=== PATIENT | female | born 1940 | race American Indian/Alaskan Native ===

== ENCOUNTER 2016-12-07 18:38 | Emergency (ER) | payer MEDICARE, OTHER ==
[2016-12-07 19:06] VITALS: BP 173/64
--- NOTE | 2016-12-07 19:20 | EDM.PDOC ---
ED HISTORY OF PRESENT ILLNESS - General Chief Complaint: Respiratory Problem Stated Complaint: SICK Time Seen by Provider: 12/07/16 19:00 Source of Information: Reports: Patient History Limitations: Reports: No limitations - History of Present Illness INITIAL COMMENTS - FREE TEXT/NARRATIVE: c/o feeling weak, sore throat , congestion, occasional cough, diarrhea since Tuesday up to 10 times per day. Treated for UTI on Macrobid for 4 days. Still having burning and frequency. - Related Data Allergies/ADRs: Allergies Allergy/AdvReac Type Severity Reaction Status Date / Time acetaminophen Allergy Rash Verified 06/12/16 11:27 [From Darvocet-N 100] ciprofloxacin [From Cipro] Allergy Rash Verified 06/12/16 11:27 ciprofloxacin HCl Allergy Rash Verified 06/12/16 11:27 [From Cipro] latex Allergy Rash Verified 06/12/16 11:27 metformin HCl Allergy Other Verified 06/12/16 11:27 [From Glucophage] propoxyphene napsylate Allergy Rash Verified 06/12/16 11:27 [From Darvocet-N 100] sulfamethoxazole Allergy Rash Verified 06/12/16 11:27 [From Bactrim] trimethoprim [From Bactrim] Allergy Rash Verified 06/12/16 11:27 promethazine HCl AdvReac Weakness Verified 06/12/16 11:27 [From Phenergan] Home Meds: Home Meds Aspirin 1 tab PO DAILY 08/31/13 [History] Clopidogrel [Plavix] 1 tab PO DAILY 08/31/13 [History] glyBURIDE [Diabeta] 5 mg PO ACBREAKFAST 08/31/13 [History] Vitamin E 1 cap PO DAILY 08/13/14 [History] Ramipril [Altace] 1 cap PO BID 10/02/15 [History] Hydrochlorothiazide 1 tab PO DAILY 10/14/15 [History] Ferrous Sulfate 1 tab PO BID 10/20/15 [History] Insuln Asp Prot/Insulin Aspart [NovoLOG Mix 70-30] 52 units SQ BEDTIME 10/20/15 [History] Insuln Asp Prot/Insulin Aspart [NovoLOG Mix 70-30] 60 units SQ ACBREAKFAST 10/20 [History] Ranitidine [Zantac] 1 tab PO ASDIRECTED PRN 10/20/15 [History] Travoprost (Benzalkonium) [Travoprost 0.004% Eye Drop] 1 drop EYEBOTH BEDTIME [History] Acetaminophen [Tylenol] 650 mg PO BID PRN 01/12/16 [History] Atenolol 2 tab PO BID 01/12/16 [History] Nitroglycerin [Nitrostat] 1 tab SL ASDIRECTED PRN 01/12/16 [History] Past Medical History HEENT History: Reports: Cataract, Glaucoma, Impaired vision Other HEENT History: WEARS CORRECTIVE LENSES; FULL SET OF DENTURES; DERMATOCHALASIS; DETACHMENT PVD; DIABETIC RETINOPATHY-PROLIFERATIVE Cardiovascular History: Reports: CAD, High cholesterol, Hypertension, Stents Respiratory History: Reports: None Gastrointestinal History: Reports: Chronic constipation, GERD, Hiatal hernia, Other (see below) Other Gastrointestinal History: BLACK STOOLS Genitourinary History: Reports: UTI, recurrent, Other (see below) Other Genitourinary History: 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 - Infectious Disease History Infectious Disease History: Reports: Chicken pox, Measles, Mumps, Shingles - Past Surgical History HEENT Surgical History: Reports: Cataract surgery Cardiovascular Surgical History: Reports: Coronary artery stent, Other (see below) Other Cardiovascular Surgeries/Procedures: ANGIOPLASTY Respiratory Surgical History: Reports: None GI Surgical History: Reports: Cholecystectomy, Colonoscopy, EGD Female Surgical History: Reports: Breast biopsy, Tubal ligation Endocrine Surgical History: Reports: None Neurological Surgical History: Reports: None Musculoskeletal Surgical History: Reports: Carpal tunnel Oncologic Surgical History: Reports: Biopsy of breast Social & Family History - Family History Family Medical History: Noncontributory - Tobacco Use Smoking Status *Q: Never Smoker Years of Tobacco use: 18 Used Tobacco, but Quit: Yes Month Tobacco Last Used: 0 Second Hand Smoke Exposure: No - Caffeine Use Caffeine Use: Reports: Coffee - Alcohol Use Days Per Week of Alcohol Use: 0 - Recreational Drug Use Recreational Drug Use: No - Living Situation & Occupation Living situation: Reports: , with family Occupation: retired ED ROS GENERAL - Review of Systems Review Of Systems: See Below Constitutional: Reports: chills, malaise, weakness, decreased appetite HEENT: Reports: Ear pain (left), Sinus problem, Throat pain Respiratory: Reports: No Symptoms, Cough (post nasal) Cardiovascular: Reports: No symptoms GI/Abdominal: Reports: Abdominal pain (epigastric, suprapubic), Diarrhea (up to 10 times per day, some better today), Decreased appetite : Reports: dysuria, frequency Musculoskeletal: Reports: joint pain (knee chronic) Skin: Reports: no symptoms Neurological: Reports: No Symptoms Psychiatric: Reports: No symptoms ED EXAM, GENERAL - Physical Exam Exam: See Below Exam Limited By: No limitations General Appearance: alert, mild distress Eye Exam: bilateral eye: EOMI Ears: normal external exam. No: normal TMs (fluid on left) Ear Exam: left ear: TM bulging Nose: normal inspection Throat/Mouth: Other (mucus membranes sticky) Head: atraumatic, normocephalic Neck: normal inspection, full range of motion. No: lymphadenopathy (L), lymphadenopathy (R) Respiratory/Chest: no respiratory distress, lungs clear Cardiovascular: normal peripheral pulses GI/Abdominal: normal bowel sounds, soft, tender (epigastric, low abdomen) Back Exam: normal inspection Extremities: normal inspection Neurological: alert, oriented, normal cognition Psychiatric: normal affect Skin Exam: Warm, Dry, Normal color Course - Vital Signs Last Recorded V/S: Last Vital Signs Temp 99.5 F 12/07/16 18:42 Pulse 66 12/07/16 18:42 Resp 16 12/07/16 18:42 BP 173/64 H 12/07/16 18:42 Pulse Ox 97 12/07/16 18:42 - Orders/Labs/Meds Labs: Laboratory Tests 12/07/16 12/07/16 12/07/16 Range/Units 19:00 19:42 19:42 WBC 10.4 H (5.0-10.0) 10^3/uL RBC 4.43 (4.2-5.4) 10^6/uL Hgb 13.3 (12.0-16.0) g/dL Hct 39.0 (37.0-47.0) % MCV 88.0 (80-100) fL MCH 30.0 (27.0-34.0) pg MCHC 34.1 (33.0-35.0) g/dL Plt Count 192 (150-450) 10^3/uL Neut % (Auto) 76.1 H (42.2-75.2) % Lymph % (Auto) 12.3 L (20.5-50.1) % [place] % (Auto) 10.2 H (2-8) % Eos % (Auto) 1.2 (1.0-3.0) % Baso % (Auto) 0.2 (0.0-1.0) % Sodium 135 (135-145) mmol/L Potassium 3.7 (3.6-5.0) mmol/L Chloride 99 L (101-111) mmol/L Carbon Dioxide 26.0 (21.0-31.0) mmol/L Anion Gap 13.7 BUN 15 (7-18) mg/dL Creatinine 1.0 (0.6-1.3) mg/dL Est Cr Clr Drug Dosing TNP Estimated GFR (MDRD) 54 BUN/Creatinine Ratio 15.00 Glucose 226 H (74-105) mg/dL Lactic Acid (0.5-2.2) mmol/L Calcium 8.6 (8.4-10.2) mg/dl Total Bilirubin 0.8 (0.2-1.0) mg/dL AST 15 (10-42) IU/L ALT 13 (10-60) IU/L Alkaline Phosphatase 71 (42-121) IU/L B-Natriuretic Peptide 223 H (0-100) pg/ml Total Protein 7.2 (6.7-8.2) g/dl Albumin 3.5 (3.2-5.5) g/dl Globulin 3.7 Albumin/Globulin Ratio 0.95 Amylase 23 L (28-100) U/L Lipase 20 L (22-51) U/L Urine Color Dark yellow (YELLOW) Urine Appearance Slightly cloudy (CLEAR) Urine pH 6.0 (5.0-9.0) Ur Specific [place] 1.020 (1.005-1.030) Urine Protein >=300 H (NEGATIVE) Urine Glucose (UA) 100 H (NEGATIVE) Urine Ketones Trace H (NEGATIVE) Urine Occult Blood Moderate H (NEGATIVE) Urine Nitrite Negative (NEGATIVE) Urine Bilirubin Negative (NEGATIVE) Urine Urobilinogen 0.2 (0.2-1.0) mg/dL Ur Leukocyte Esterase Trace H (NEGATIVE) Urine RBC 10-20 H /HPF Urine WBC 50-75 H (0-5/HPF) /HPF Ur Epithelial Cells Moderate H /HPF Urine Bacteria Few (0-FEW/HPF) /HPF Urine Mucus Few H /LPF Urine Yeast Rare H (0/HPF) /HPF Ketones Negative 12/07/16 Range/Units 19:42 WBC (5.0-10.0) 10^3/uL RBC (4.2-5.4) 10^6/uL Hgb (12.0-16.0) g/dL Hct (37.0-47.0) % MCV (80-100) fL MCH (27.0-34.0) pg MCHC (33.0-35.0) g/dL Plt Count (150-450) 10^3/uL Neut % (Auto) (42.2-75.2) % Lymph % (Auto) (20.5-50.1) % [place] % (Auto) (2-8) % Eos % (Auto) (1.0-3.0) % Baso % (Auto) (0.0-1.0) % Sodium (135-145) mmol/L Potassium (3.6-5.0) mmol/L Chloride (101-111) mmol/L Carbon Dioxide (21.0-31.0) mmol/L Anion Gap BUN (7-18) mg/dL Creatinine (0.6-1.3) mg/dL Est Cr Clr Drug Dosing Estimated GFR (MDRD) BUN/Creatinine Ratio Glucose (74-105) mg/dL Lactic Acid 1.2 (0.5-2.2) mmol/L Calcium (8.4-10.2) mg/dl Total Bilirubin (0.2-1.0) mg/dL AST (10-42) IU/L ALT (10-60) IU/L Alkaline Phosphatase (42-121) IU/L B-Natriuretic Peptide (0-100) pg/ml Total Protein (6.7-8.2) g/dl Albumin (3.2-5.5) g/dl Globulin Albumin/Globulin Ratio Amylase (28-100) U/L Lipase (22-51) U/L Urine Color (YELLOW) Urine Appearance (CLEAR) Urine pH (5.0-9.0) Ur Specific [place] (1.005-1.030) Urine Protein (NEGATIVE) Urine Glucose (UA) (NEGATIVE) Urine Ketones (NEGATIVE) Urine Occult Blood (NEGATIVE) Urine Nitrite (NEGATIVE) Urine Bilirubin (NEGATIVE) Urine Urobilinogen (0.2-1.0) mg/dL Ur Leukocyte Esterase (NEGATIVE) Urine RBC /HPF Urine WBC (0-5/HPF) /HPF Ur Epithelial Cells /HPF Urine Bacteria (0-FEW/HPF) /HPF Urine Mucus /LPF Urine Yeast (0/HPF) /HPF Ketones Meds: Medications Discontinued Medications Generic Name Dose Route Start Last Admin Trade Name Freq PRN Reason Stop Dose Admin Ceftriaxone Sodium 1 gm/ 0 gm 12/07/16 20:20 12/07/16 20:40 Lidocaine HCl 2.1 ml IM 12/07/16 20:21 2.1 inj ONETIME ONE Administration Departure - Departure Time of Disposition: 20:43 Disposition: Home, Self-Care 01 Condition: fair Clinical Impression: Strep pharyngitis Diabetes Qualifiers: Diabetes mellitus type: type 2 Diabetes mellitus complication status: with unspecified complications Diabetes mellitus group home insulin use: unspecified 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
[2016-12-07 20:09] LABS: CHLORIDE,CL 99 mmol/L (101-111); SODIUM,NA 135 mmol/L (135-145)
[2016-12-07] MEDS ORDERED: cefTRIAXone 1 GM, Lidocaine 1% 2.1 ML IM ONE ×2 (20:20)
== END 2016-12-07 20:50 | disposition home or self-care (01) ==
LOC: DL.ED 18:38
DX: J02.0 Streptococcal pharyngitis (principal); E11.8 Type 2 diabetes mellitus with unspecified complications; E11.3599 Type 2 diabetes mellitus with proliferative diabetic retinopathy without macular edema, unspecified eye; R19.7 Diarrhea, unspecified; H26.9 Unspecified cataract; H40.9 Unspecified glaucoma; I25.10 Atherosclerotic heart disease of native coronary artery without angina pectoris; Z95.5 Presence of coronary angioplasty implant and graft; I10 Essential (primary) hypertension; K59.09 Other constipation; K21.9 Gastro-esophageal reflux disease without esophagitis; K44.9 Diaphragmatic hernia without obstruction or gangrene; R35.0 Frequency of micturition; M06.9 Rheumatoid arthritis, unspecified; E66.9 Obesity, unspecified; E61.1 Iron deficiency; L30.9 Dermatitis, unspecified; L40.9 Psoriasis, unspecified; Z88.6 Allergy status to analgesic agent; Z88.1 Allergy status to other antibiotic agents; Z91.040 Latex allergy status; Z88.2 Allergy status to sulfonamides; Z79.82 Long term (current) use of aspirin; Z79.01 Long term (current) use of anticoagulants; Z79.899 Other long term (current) drug therapy; Z79.4 Long term (current) use of insulin
CPT/HCPCS: 36415; 80053; 81001; 82009; 82150; 83605; 83690; 83880; 85025; 87430; 87804; 96372; 99283; J0696

== ENCOUNTER 2016-12-24 06:09 | Day surgery (SDC) | payer MEDICARE, OTHER ==
[~2016-12-24 06:09] MED LIST: Dextrose 5%-0.45% NaCl 1,000 ML IV SCH; Sodium Chloride 0.9% 10 ML Syringe FLUSH PRN
[2016-12-24] MEDS ORDERED: fentaNYL 100 MCG/2 ML SDV ONE (06:16)
[2016-12-24] MEDS ORDERED: Midazolam 1 MG/ML 2 ML SDV ONE (06:16)
[2016-12-24] MEDS ORDERED: fentaNYL 100 MCG/2 ML SDV IV ONE ×3 (06:57→14:24)
[2016-12-24] MEDS ORDERED: Midazolam 1 MG/ML 2 ML SDV IV ONE ×6 (06:58→14:24)
[2016-12-24 09:34] VITALS: BP 111/81
--- NOTE | 2016-12-24 10:12 | OR ---
DATE: 12/24/2016 PROCEDURE: Total colonoscopy, NBI, and multiple cold snare polypectomies. INSTRUMENT USED: PCF-H180AL video colonoscope. PREMEDICATIONS: Fentanyl 100 mcg intravenous, Versed 3 mg intravenous. Nasal 2 L O2 cannula. The procedure was done under pulse oximetry, BP recording, and electronic device monitor. INDICATION: The patient with rectal bleeding. Colonoscopic examination is done for detection of any polypoid lesions and removal, endoscopic hemostasis therapy if needed. DESCRIPTION OF PROCEDURE: Initial rectal exam showed anal sphincter to be a bit lax. Rigid anoscopy showed small internal hemorrhoids without bleeding from them. The colonoscope was passed with ease up to the ileocecal area. Numerous scattered diverticula were noted more so in the distal left colon, a few wide mouthed. Photographs were taken of the cecum, showing multiple diminutive, benign-appearing polyp, 2 in number, NBI views were obtained, cold snare polypectomies were done, the tissues were retrieved and sent for histopathology. No bleeding was noted from any of the visualized areas at the commencement of the examination. No stricture. No vascular ectasia. No large isolated ulcerations seen. No evidence of diffuse inflammatory bowel disease in the form of friability, contact bleeding, or ulcerations. There was some amount of fecal material, some solid material also requiring clearing of the area. Probing the proximal sides of folds and flexures, using adequate distention and clearing up the stool material, withdrawal of the scope was made. In the distal sigmoid colon, another diminutive polyp was noted, NBI views were taken, photographs were taken, cold snare polypectomy was done, the tissue was retrieved and sent for histopathology. No bleeding was noted from any of the visualized areas at the completion of examination. IMPRESSION: 1. Internal hemorrhoids. 2. Diverticulosis. 3. Multiple diminutive colonic polyps. The patient tolerated the procedure well. [facility] /[id number]
--- NOTE | 2016-12-24 10:57 | LETTER ---
12/24/2016 Herlinda Markham NP [facility] [address] [place] [address] RE: CALOS WATT MIESHA : 1940 Dear Ms. Markham: Ms. Calos Watt had colonoscopic examination done this morning and she tolerated the procedure well. I herewith send a copy of the endoscopy note and photographs for your review. Thank you. Sincerely, [facility] /[id number]
== END 2016-12-24 09:51 | disposition home or self-care (01) ==
LOC: DL.ENDO 06:09 → EDSTATUS 07:00 → DL.ENDO 09:51
PROVIDERS: ATTEND Internal Medicine Gastroenterology
DX: D12.0 Benign neoplasm of cecum (principal); D12.5 Benign neoplasm of sigmoid colon; K57.30 Diverticulosis of large intestine without perforation or abscess without bleeding; K64.8 Other hemorrhoids; I10 Essential (primary) hypertension; E78.5 Hyperlipidemia, unspecified; E66.9 Obesity, unspecified; E11.9 Type 2 diabetes mellitus without complications; Z90.49 Acquired absence of other specified parts of digestive tract; I25.10 Atherosclerotic heart disease of native coronary artery without angina pectoris; Z88.2 Allergy status to sulfonamides; Z91.040 Latex allergy status; Z88.8 Allergy status to other drugs, medicaments and biological substances; Z88.1 Allergy status to other antibiotic agents; Z95.5 Presence of coronary angioplasty implant and graft
CPT/HCPCS: 45385; 88305; J2250; J3010; J7042

== ENCOUNTER 2017-04-11 23:00 | Emergency (ER) | payer MEDICARE, OTHER ==
[2017-04-11 23:32] VITALS: BP 164/61
[2017-04-12] MEDS ORDERED: Amoxicillin/Clavulanate K 500-125 MG Tab ONE (00:48)
--- NOTE | 2017-04-12 00:49 | EDM.PDOC ---
ED HPI GENERAL MEDICAL PROBLEM - General Chief Complaint: Fever Stated Complaint: SICK Time Seen by Provider: 04/11/17 23:35 Source of Information: Reports: Patient History Limitations: Reports: No Limitations - History of Present Illness INITIAL COMMENTS - FREE TEXT/NARRATIVE: c/o feeling sick with fever, aches, urinary frequency and low back pain for past few days. Chills worse tonight so came to ED. Diarrhea last week. Blood sugars past 3 weeks in am have been 50-60. Other times during day have been fine. 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 Right Flank Pain Score (Numeric/FACES): 8 - Related Data Allergies Allergy/AdvReac Type Severity Reaction Status Date / Time ciprofloxacin [From Cipro] Allergy Rash Verified 04/11/17 23:29 ciprofloxacin HCl Allergy Rash Verified 04/11/17 23:29 [From Cipro] latex Allergy Rash Verified 04/11/17 23:29 metformin HCl Allergy Other Verified 04/11/17 23:29 [From Glucophage] propoxyphene napsylate Allergy Rash Verified 04/11/17 23:29 [From Darvocet-N 100] sulfamethoxazole Allergy Rash Verified 04/11/17 23:29 [From Bactrim] trimethoprim [From Bactrim] Allergy Rash Verified 04/11/17 23:29 promethazine HCl AdvReac Weakness Verified 04/11/17 23:29 [From Phenergan] Home Meds: Home Meds Aspirin 1 tab PO DAILY 08/31/13 [History] Clopidogrel [Plavix] 1 tab PO DAILY 08/31/13 [History] glyBURIDE [Diabeta] 5 mg PO ACBREAKFAST 08/31/13 [History] Vitamin E 1 cap PO DAILY 08/13/14 [History] Ferrous Sulfate 1 tab PO BID 10/20/15 [History] Insuln Asp Prot/Insulin Aspart [NovoLOG Mix 70-30] 52 units SQ ACBREAKFAST 10/20 [History] Insuln Asp Prot/Insulin Aspart [NovoLOG Mix 70-30] 60 units SQ BEDTIME 10/20/15 [History] Ranitidine [Zantac] 1 tab PO BID PRN 10/20/15 [History] Travoprost (Benzalkonium) [Travoprost 0.004% Eye Drop] 1 drop EYEBOTH BEDTIME [History] Atenolol 1 tab PO BID 01/12/16 [History] Nitroglycerin [Nitrostat] 1 tab SL ASDIRECTED PRN 01/12/16 [History] Acetaminophen 500 mg PO Q4H PRN 04/11/17 [History] Ramipril [Altace] 5 mg PO BID 04/11/17 [History] Past Medical History HEENT History: Reports: Cataract, Glaucoma, Impaired Vision Other HEENT History: WEARS CORRECTIVE LENSES; FULL SET OF DENTURES; DERMATOCHALASIS; DETACHMENT PVD; DIABETIC RETINOPATHY-PROLIFERATIVE Cardiovascular History: Reports: CAD, High Cholesterol, Hypertension, Stents Respiratory History: Reports: None Gastrointestinal History: Reports: Chronic Constipation, GERD, Helicobacter Pylori, Hiatal Hernia Other Gastrointestinal History: BLACK STOOLS Genitourinary History: Reports: UTI, Recurrent 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 - Infectious Disease History Infectious Disease History: Reports: Chicken Pox, Measles, Mumps, Shingles - Past Surgical History HEENT Surgical History: Reports: Cataract Surgery Cardiovascular Surgical History: Reports: Coronary Artery Stent Respiratory Surgical History: Reports: None GI Surgical History: Reports: Cholecystectomy Female Surgical History: Reports: Breast Biopsy, Tubal Ligation Neurological Surgical History: Reports: None Oncologic Surgical History: Reports: Biopsy of Breast Social & Family History - Family History Family Medical History: Noncontributory - Tobacco Use Smoking Status *Q: Never Smoker Years of Tobacco use: 18 Used Tobacco, but Quit: Yes Month Tobacco Last Used: 0 Second Hand Smoke Exposure: No - Caffeine Use Caffeine Use: Reports: Coffee - Alcohol Use Days Per Week of Alcohol Use: 0 - Recreational Drug Use Recreational Drug Use: No - Living Situation & Occupation Living situation: Reports: , with Family Occupation: Retired ED ROS GENERAL - Review of Systems Review Of Systems: See Below Constitutional: Reports: Chills HEENT: Reports: No Symptoms Respiratory: Reports: No Symptoms Cardiovascular: Reports: No Symptoms GI/Abdominal: Reports: No Symptoms : Reports: Flank Pain (right), Frequency, Urgency Musculoskeletal: Reports: No Symptoms Skin: Reports: No Symptoms Neurological: Reports: No Symptoms ED EXAM, RENAL/ - Physical Exam Exam: See Below Exam Limited By: No Limitations General Appearance: Alert, No Apparent Distress, Obese Eye Exam: Bilateral Eye: EOMI Ears: Normal External Exam Nose: Normal Inspection Throat/Mouth: Normal Inspection Head: Atraumatic, Normocephalic Neck: Normal Inspection Respiratory/Chest: No Respiratory Distress Cardiovascular: Regular Rate, Rhythm GI/Abdominal: Normal Bowel Sounds, Soft, Non-Tender, No Distention Back Exam: CVA Tenderness (R) Extremities: Normal Inspection Neurological: Alert, Oriented, Normal Cognition Psychiatric: Normal Affect, Normal Mood Skin Exam: Warm, Dry, Intact, Normal Color Course - Vital Signs Last Recorded V/S: Last Vital Signs Temp 98.6 F 04/11/17 23:29 Pulse 85 04/11/17 23:29 Resp 20 04/11/17 23:29 BP 164/61 H 04/11/17 23:29 Pulse Ox 98 04/11/17 23:29 - Orders/Labs/Meds Orders: Active Orders 24 hr Category Date Time Status CULTURE URINE [RM] Stat Lab 04/12/17 00:00 Received Labs: Laboratory Tests 04/11/17 04/12/17 04/12/17 Range/Units 23:48 00:10 00:10 WBC 11.0 H (5.0-10.0) 10^3/uL RBC 4.61 (4.2-5.4) 10^6/uL Hgb 14.1 (12.0-16.0) g/dL Hct 41.4 (37.0-47.0) % MCV 89.8 (80-100) fL MCH 30.6 (27.0-34.0) pg MCHC 34.1 (33.0-35.0) g/dL Plt Count 212 (150-450) 10^3/uL Neut % (Auto) 77.1 H (42.2-75.2) % Lymph % (Auto) 12.4 L (20.5-50.1) % [place] % (Auto) 8.7 H (2-8) % Eos % (Auto) 1.6 (1.0-3.0) % Baso % (Auto) 0.2 (0.0-1.0) % Sodium 140 (135-145) mmol/L Potassium 4.7 (3.6-5.0) mmol/L Chloride 103 (101-111) mmol/L Carbon Dioxide 26.0 (21.0-31.0) mmol/L Anion Gap 15.7 BUN 23 H (7-18) mg/dL Creatinine 1.1 (0.6-1.3) mg/dL Est Cr Clr Drug Dosing 36.78 mL/min Estimated GFR (MDRD) 48 BUN/Creatinine Ratio 20.90 Glucose 240 H (74-105) mg/dL Lactic Acid (0.5-2.2) mmol/L Calcium 9.2 (8.4-10.2) mg/dl Total Bilirubin 0.4 (0.2-1.0) mg/dL AST 16 (10-42) IU/L ALT 15 (10-60) IU/L Alkaline Phosphatase 89 (42-121) IU/L Total Protein 7.4 (6.7-8.2) g/dl Albumin 3.8 (3.2-5.5) g/dl Globulin 3.6 Albumin/Globulin Ratio 1.06 Urine Color Yellow (YELLOW) Urine Appearance Cloudy (CLEAR) Urine pH 5.5 (5.0-9.0) Ur Specific [place] 1.015 (1.005-1.030) Urine Protein 100 H (NEGATIVE) Urine Glucose (UA) 100 H (NEGATIVE) Urine Ketones Negative (NEGATIVE) Urine Occult Blood Small H (NEGATIVE) Urine Nitrite Positive H (NEGATIVE) Urine Bilirubin Negative (NEGATIVE) Urine Urobilinogen 0.2 (0.2-1.0) mg/dL Ur Leukocyte Esterase Small H (NEGATIVE) Urine RBC 5-10 H /HPF Urine WBC 50-75 H (0-5/HPF) /HPF Ur Epithelial Cells Moderate H /HPF Urine Bacteria Many H (0-FEW/HPF) /HPF 04/12/17 Range/Units 00:10 WBC (5.0-10.0) 10^3/uL RBC (4.2-5.4) 10^6/uL Hgb (12.0-16.0) g/dL Hct (37.0-47.0) % MCV (80-100) fL MCH (27.0-34.0) pg MCHC (33.0-35.0) g/dL Plt Count (150-450) 10^3/uL Neut % (Auto) (42.2-75.2) % Lymph % (Auto) (20.5-50.1) % [place] % (Auto) (2-8) % Eos % (Auto) (1.0-3.0) % Baso % (Auto) (0.0-1.0) % Sodium (135-145) mmol/L Potassium (3.6-5.0) mmol/L Chloride (101-111) mmol/L Carbon Dioxide (21.0-31.0) mmol/L Anion Gap BUN (7-18) mg/dL Creatinine (0.6-1.3) mg/dL Est Cr Clr Drug Dosing mL/min Estimated GFR (MDRD) BUN/Creatinine Ratio Glucose (74-105) mg/dL Lactic Acid 1.5 (0.5-2.2) mmol/L Calcium (8.4-10.2) mg/dl Total Bilirubin (0.2-1.0) mg/dL AST (10-42) IU/L ALT (10-60) IU/L Alkaline Phosphatase (42-121) IU/L Total Protein (6.7-8.2) g/dl Albumin (3.2-5.5) g/dl Globulin Albumin/Globulin Ratio Urine Color (YELLOW) Urine Appearance (CLEAR) Urine pH (5.0-9.0) Ur Specific [place] (1.005-1.030) Urine Protein (NEGATIVE) Urine Glucose (UA) (NEGATIVE) Urine Ketones (NEGATIVE) Urine Occult Blood (NEGATIVE) Urine Nitrite (NEGATIVE) Urine Bilirubin (NEGATIVE) Urine Urobilinogen (0.2-1.0) mg/dL Ur Leukocyte Esterase (NEGATIVE) Urine RBC /HPF Urine WBC (0-5/HPF) /HPF Ur Epithelial Cells /HPF Urine Bacteria (0-FEW/HPF) /HPF Meds: Medications Discontinued Medications Generic Name Dose Route Start Last Admin Trade Name Freq PRN Reason Stop Dose Admin Amoxicillin/Clavulanate Potassium Confirm 04/12/17 00:48 04/12/17 00:55 Augmentin 500 Mg\125 Mg Administered 04/12/17 00:49 2 tab Dose Administration 2 tab .ROUTE .STK-MED ONE Departure - Departure Time of Disposition: 00:46 Disposition: Home, Self-Care 01 Condition: Good Clinical Impression: UTI, Urinary tract infectious disease UTI (urinary tract infection) Qualifiers: Urinary tract infection type: site unspecified Hematuria presence: without hematuria Qualified Code(s): N39.0 - Urinary tract infection, site not specified - Discharge Information Forms: ED Department Discharge Additional Instructions: amoxicllin 500/125 give one twice daily for one week recheck in clinic on week and follow up with primary care provider regarding low blood sugars in am. - My Orders Last 24 Hours: My Active Orders 04/12/17 00:00 CULTURE URINE [RM] Stat - Assessment/Plan Last 24 Hours: My Active Orders 04/12/17 00:00 CULTURE URINE [RM] Stat
== END 2017-04-12 00:56 | disposition home or self-care (01) ==
LOC: DL.ED 23:00
DX: N39.0 Urinary tract infection, site not specified (principal); E11.3599 Type 2 diabetes mellitus with proliferative diabetic retinopathy without macular edema, unspecified eye; M06.9 Rheumatoid arthritis, unspecified; K21.9 Gastro-esophageal reflux disease without esophagitis; E66.9 Obesity, unspecified; L40.9 Psoriasis, unspecified; I25.10 Atherosclerotic heart disease of native coronary artery without angina pectoris; I10 Essential (primary) hypertension; E78.00 Pure hypercholesterolemia, unspecified; Z98.49 Cataract extraction status, unspecified eye; Z90.49 Acquired absence of other specified parts of digestive tract; Z88.8 Allergy status to other drugs, medicaments and biological substances; Z91.040 Latex allergy status; Z88.1 Allergy status to other antibiotic agents; Z88.2 Allergy status to sulfonamides; Z79.82 Long term (current) use of aspirin; Z79.899 Other long term (current) drug therapy; Z98.51 Tubal ligation status; Z95.5 Presence of coronary angioplasty implant and graft
CPT/HCPCS: 36415; 80053; 81001; 83605; 85025; 87086; 87088; 87186; 99284; A9270

== ENCOUNTER 2017-05-01 20:52 | Emergency (ER) | payer MEDICARE, OTHER ==
[2017-05-01 20:59] VITALS: BP 174/75
--- NOTE | 2017-05-01 21:56 | EDM.PDOC ---
ED HPI GENERAL MEDICAL PROBLEM - General Chief Complaint: Genitourinary Problem Stated Complaint: SICK Time Seen by Provider: 05/01/17 21:45 Source of Information: Reports: Patient History Limitations: Reports: No Limitations - History of Present Illness INITIAL COMMENTS - FREE TEXT/NARRATIVE: This 76 yo female patient reports to the ED with continued lower abdominal pain and dysuria. The patient completed a course of Augmentin on Tuesday, but continues to have symptoms. The patient reports her symptoms got much worse today. The patient reports she does have an appointment in the [facility] on 05/25/17. Culture results demonstrate both E. Coli and S. Aureus with acceptable treatment to be Augmentin or Macrobid for the E. Coli and Bacrobid for the S. Aureus. Onset: Today Duration: Constant, Getting Worse Location: Reports: Abdomen Quality: Reports: Burning, Dull Severity: Moderate Improves with: Reports: None Worsens with: Reports: None Associated Symptoms: Reports: No Other Symptoms Bladder Pain Score (Numeric/FACES): 5 - Related Data Allergies Allergy/AdvReac Type Severity Reaction Status Date / Time ciprofloxacin [From Cipro] Allergy Rash Verified 05/01/17 20:59 ciprofloxacin HCl Allergy Rash Verified 05/01/17 20:59 [From Cipro] latex Allergy Rash Verified 05/01/17 20:59 metformin HCl Allergy Other Verified 05/01/17 20:59 [From Glucophage] propoxyphene napsylate Allergy Rash Verified 05/01/17 20:59 [From Darvocet-N 100] sulfamethoxazole Allergy Rash Verified 05/01/17 20:59 [From Bactrim] trimethoprim [From Bactrim] Allergy Rash Verified 05/01/17 20:59 promethazine HCl AdvReac Weakness Verified 05/01/17 20:59 [From Phenergan] Home Meds: Home Meds Aspirin 1 tab PO DAILY 08/31/13 [History] Clopidogrel [Plavix] 1 tab PO DAILY 08/31/13 [History] glyBURIDE [Diabeta] 5 mg PO ACBREAKFAST 08/31/13 [History] Vitamin E 1 cap PO DAILY 08/13/14 [History] Ferrous Sulfate 1 tab PO BID 10/20/15 [History] Insuln Asp Prot/Insulin Aspart [NovoLOG Mix 70-30] 52 units SQ ACBREAKFAST 10/20 [History] Insuln Asp Prot/Insulin Aspart [NovoLOG Mix 70-30] 52 units SQ BEDTIME 10/20/15 [History] Ranitidine [Zantac] 1 tab PO BID PRN 10/20/15 [History] Travoprost (Benzalkonium) [Travoprost 0.004% Eye Drop] 1 drop EYEBOTH BEDTIME [History] Atenolol 1 tab PO BID 01/12/16 [History] Nitroglycerin [Nitrostat] 1 tab SL ASDIRECTED PRN 01/12/16 [History] Acetaminophen 500 mg PO Q4H PRN 04/11/17 [History] Ramipril [Altace] 5 mg PO BID 04/11/17 [History] Past Medical History HEENT History: Reports: Cataract, Glaucoma, Impaired Vision Other HEENT History: WEARS CORRECTIVE LENSES; FULL SET OF DENTURES; DERMATOCHALASIS; DETACHMENT PVD; DIABETIC RETINOPATHY-PROLIFERATIVE Cardiovascular History: Reports: CAD, High Cholesterol, Hypertension, Stents Respiratory History: Reports: None Gastrointestinal History: Reports: Chronic Constipation, GERD, Helicobacter Pylori, Hiatal Hernia Other Gastrointestinal History: BLACK STOOLS Genitourinary History: Reports: UTI, Recurrent Other Genitourinary History: 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 - Infectious Disease History Infectious Disease History: Reports: Chicken Pox, Measles, Mumps, Shingles - Past Surgical History HEENT Surgical History: Reports: Cataract Surgery Cardiovascular Surgical History: Reports: Coronary Artery Stent Respiratory Surgical History: Reports: None GI Surgical History: Reports: Cholecystectomy Female Surgical History: Reports: Breast Biopsy, Tubal Ligation Neurological Surgical History: Reports: None Oncologic Surgical History: Reports: Biopsy of Breast Social & Family History - Family History Family Medical History: Noncontributory - Tobacco Use Smoking Status *Q: Never Smoker Years of Tobacco use: 18 Used Tobacco, but Quit: Yes Month Tobacco Last Used: 0 Second Hand Smoke Exposure: No - Caffeine Use Caffeine Use: Reports: Coffee - Alcohol Use Days Per Week of Alcohol Use: 0 - Recreational Drug Use Recreational Drug Use: No - Living Situation & Occupation Living situation: Reports: , with Family Occupation: Retired ED ROS GENERAL - Review of Systems Review Of Systems: ROS reveals no pertinent complaints other than HPI. ED EXAM, RENAL/ - Physical Exam Exam: See Below Exam Limited By: No Limitations General Appearance: Alert, WD/WN, No Apparent Distress Eye Exam: Bilateral Eye: EOMI, Normal Inspection, PERRL Ears: Normal External Exam, Normal Canal, Hearing Grossly Normal, Normal TMs Nose: Normal Inspection, Normal Mucosa, No Blood Throat/Mouth: Normal Inspection, Normal Lips, Normal Teeth, Normal Gums, Normal Oropharynx, Normal Voice, No Airway Compromise Head: Atraumatic, Normocephalic Neck: Normal Inspection, Supple, Non-Tender, Full Range of Motion Respiratory/Chest: No Respiratory Distress, Lungs Clear, Normal Breath Sounds, No Accessory Muscle Use, Chest Non-Tender GI/Abdominal: Normal Bowel Sounds, Soft, No Organomegaly, No Distention, No Abnormal Bruit, No Mass, Pelvis Stable, Tender (lower abdomen) (Female) Exam: Deferred Rectal (Female) Exam: Deferred Back Exam: Normal Inspection, Full Range of Motion, NT Extremities: Normal Inspection, Normal Range of Motion, Non-Tender, Normal Capillary Refill, No Pedal Edema Neurological: Alert, Oriented, CN II-XII Intact, Normal Cognition, Normal Gait, Normal Reflexes, No Motor/Sensory Deficits Psychiatric: Normal Affect, Normal Mood Skin Exam: Warm, Dry, Intact, Normal Color, No Rash Lymphatic: No Adenopathy Course - Vital Signs Last Recorded V/S: Last Vital Signs Temp 36.9 C 05/01/17 20:55 Pulse 72 05/01/17 20:55 Resp 18 05/01/17 20:55 BP 174/75 H 05/01/17 20:55 Pulse Ox 97 05/01/17 20:55 - Orders/Labs/Meds Orders: Active Orders 24 hr Category Date Time Status COMPREHENSIVE METABOLIC PN,CMP [CHEM] Stat Lab 05/01/17 21:37 Ordered Acetaminophen [Tylenol] Med 05/01/17 22:54 Once 650 mg PO NOW ONE Nitrofurantoin [place]/Macrocryst [Macrobid] Med 05/01/17 22:54 Once 100 mg PO ONETIME ONE Labs: Laboratory Tests 05/01/17 05/01/17 Range/Units 21:21 22:30 WBC 10.5 H (5.0-10.0) 10^3/uL RBC 4.76 (4.2-5.4) 10^6/uL Hgb 14.4 (12.0-16.0) g/dL Hct 42.6 (37.0-47.0) % MCV 89.5 (80-100) fL MCH 30.3 (27.0-34.0) pg MCHC 33.8 (33.0-35.0) g/dL Plt Count 226 (150-450) 10^3/uL Neut % (Auto) 72.8 (42.2-75.2) % Lymph % (Auto) 15.9 L (20.5-50.1) % [place] % (Auto) 9.1 H (2-8) % Eos % (Auto) 2.0 (1.0-3.0) % Baso % (Auto) 0.2 (0.0-1.0) % Urine Color Yellow (YELLOW) Urine Appearance Cloudy (CLEAR) Urine pH 6.0 (5.0-9.0) Ur Specific [place] 1.015 (1.005-1.030) Urine Protein 100 H (NEGATIVE) Urine Glucose (UA) Negative (NEGATIVE) Urine Ketones Negative (NEGATIVE) Urine Occult Blood Small H (NEGATIVE) Urine Nitrite Positive H (NEGATIVE) Urine Bilirubin Negative (NEGATIVE) Urine Urobilinogen 1.0 (0.2-1.0) mg/dL Ur Leukocyte Esterase Moderate H (NEGATIVE) Urine RBC 0-5 /HPF Urine WBC 50-75 H (0-5/HPF) /HPF Ur Epithelial Cells Moderate H /HPF Urine Bacteria Many H (0-FEW/HPF) /HPF Departure - Departure Time of Disposition: 22:56 Disposition: Home, Self-Care 01 Condition: Fair Clinical Impression: UTI, Urinary tract infectious disease - Discharge Information Instructions: Urinary Tract Infection, Adult, [id number] Forms: ED Department Discharge Care Plan Goals: The patient was advised of the examination and lab results during the visit. The patient was given an oral dose of Tylenol and Macrobid (100 mg) while in the ED. The patient was discharged with a script for Macrobid (100 mg) #20 to take 1 by mouth 2 times per day for 10 days. The patient should follow-up with her primary care facility near the end of the antibiotic course for another urinalysis. If the patient has any additional symptoms or concerns, the patient should visit her primary care facility or return to the emergency department. - My Orders Last 24 Hours: My Active Orders 05/01/17 21:37 COMPREHENSIVE METABOLIC PN,CMP [CHEM] Stat 05/01/17 22:54 Acetaminophen [Tylenol] 650 mg PO NOW ONE Nitrofurantoin [place]/Macrocryst [Macrobid] 100 mg PO ONETIME ONE - Assessment/Plan Last 24 Hours: My Active Orders 05/01/17 21:37 COMPREHENSIVE METABOLIC PN,CMP [CHEM] Stat 05/01/17 22:54 Acetaminophen [Tylenol] 650 mg PO NOW ONE Nitrofurantoin [place]/Macrocryst [Macrobid] 100 mg PO ONETIME ONE
[2017-05-01] MEDS ORDERED: Acetaminophen 325 MG Tab PO ONE (22:54)
[2017-05-01] MEDS ORDERED: Nitrofurantoin Monohydrate/Macrocrystalline 100 MG Cap PO ONE (22:54)
[2017-05-01 22:56] LABS: CHLORIDE,CL 105 mmol/L (101-111); SODIUM,NA 143 mmol/L (135-145)
== END 2017-05-01 23:04 | disposition home or self-care (01) ==
LOC: DL.ED 20:52
DX: H54.7 Unspecified visual loss (principal); M06.9 Rheumatoid arthritis, unspecified; K21.9 Gastro-esophageal reflux disease without esophagitis; I25.10 Atherosclerotic heart disease of native coronary artery without angina pectoris; E78.00 Pure hypercholesterolemia, unspecified; I10 Essential (primary) hypertension; E11.3599 Type 2 diabetes mellitus with proliferative diabetic retinopathy without macular edema, unspecified eye; Z95.5 Presence of coronary angioplasty implant and graft; Z88.1 Allergy status to other antibiotic agents; Z91.040 Latex allergy status; Z88.2 Allergy status to sulfonamides; Z88.8 Allergy status to other drugs, medicaments and biological substances; Z79.82 Long term (current) use of aspirin; Z79.4 Long term (current) use of insulin; Z87.440 Personal history of urinary (tract) infections
CPT/HCPCS: 36415; 80053; 81001; 85025; 87086; 99283; A9270; 87088; 87186

== ENCOUNTER 2017-05-17 13:32 | Emergency (ER) | payer MEDICARE, OTHER ==
--- NOTE | 2017-05-17 13:56 | EDM.PDOC ---
ED HPI GENERAL MEDICAL PROBLEM - General Chief Complaint: Trauma Stated Complaint: FELL, HEAD FIRST ON FACE Time Seen by Provider: 05/17/17 13:45 Source of Information: Reports: Patient History Limitations: Reports: No Limitations - History of Present Illness INITIAL COMMENTS - FREE TEXT/NARRATIVE: This 76 yo female patient was brought to the ED by family due to a ground level fall. The patient reports she was not using her walker, but was using the car to guide her when she tripped and fell on her face. The patient reports pain in her face, posterior head, posterior neck and right hip due to the fall. The patient denies any loss of consciousness before, during or after the fall. Onset: Today Duration: Minutes: Location: Reports: Head, Face, Neck, Lower Extremity, Right Quality: Reports: Ache, Dull Severity: Moderate Improves with: Reports: None Worsens with: Reports: None Context: Reports: Trauma (ground level fall) Associated Symptoms: Reports: No Other Symptoms - Related Data Allergies Allergy/AdvReac Type Severity Reaction Status Date / Time ciprofloxacin [From Cipro] Allergy Rash Verified 05/01/17 20:59 ciprofloxacin HCl Allergy Rash Verified 05/01/17 20:59 [From Cipro] latex Allergy Rash Verified 05/01/17 20:59 metformin HCl Allergy Other Verified 05/01/17 20:59 [From Glucophage] propoxyphene napsylate Allergy Rash Verified 05/01/17 20:59 [From Darvocet-N 100] sulfamethoxazole Allergy Rash Verified 05/01/17 20:59 [From Bactrim] trimethoprim [From Bactrim] Allergy Rash Verified 05/01/17 20:59 promethazine HCl AdvReac Weakness Verified 05/01/17 20:59 [From Phenergan] Home Meds: Home Meds Aspirin 1 tab PO DAILY 08/31/13 [History] Clopidogrel [Plavix] 1 tab PO DAILY 08/31/13 [History] glyBURIDE [Diabeta] 5 mg PO ACBREAKFAST 08/31/13 [History] Vitamin E 1 cap PO DAILY 08/13/14 [History] Ferrous Sulfate 1 tab PO BID 10/20/15 [History] Insuln Asp Prot/Insulin Aspart [NovoLOG Mix 70-30] 52 units SQ ACBREAKFAST 10/20 [History] Insuln Asp Prot/Insulin Aspart [NovoLOG Mix 70-30] 52 units SQ BEDTIME 10/20/15 [History] Ranitidine [Zantac] 1 tab PO BID PRN 10/20/15 [History] Travoprost (Benzalkonium) [Travoprost 0.004% Eye Drop] 1 drop EYEBOTH BEDTIME [History] Atenolol 1 tab PO BID 01/12/16 [History] Nitroglycerin [Nitrostat] 1 tab SL ASDIRECTED PRN 01/12/16 [History] Acetaminophen 500 mg PO Q4H PRN 04/11/17 [History] Ramipril [Altace] 5 mg PO BID 04/11/17 [History] Past Medical History HEENT History: Reports: Cataract, Glaucoma, Impaired Vision Other HEENT History: WEARS CORRECTIVE LENSES; FULL SET OF DENTURES; DERMATOCHALASIS; DETACHMENT PVD; DIABETIC RETINOPATHY-PROLIFERATIVE Cardiovascular History: Reports: CAD, High Cholesterol, Hypertension, Stents Respiratory History: Reports: None Gastrointestinal History: Reports: Chronic Constipation, GERD, Helicobacter Pylori, Hiatal Hernia Other Gastrointestinal History: BLACK STOOLS Genitourinary History: Reports: UTI, Recurrent Other Genitourinary History: 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 - Infectious Disease History Infectious Disease History: Reports: Chicken Pox, Measles, Mumps, Shingles - Past Surgical History HEENT Surgical History: Reports: Cataract Surgery Cardiovascular Surgical History: Reports: Coronary Artery Stent Respiratory Surgical History: Reports: None GI Surgical History: Reports: Cholecystectomy Female Surgical History: Reports: Breast Biopsy, Tubal Ligation Neurological Surgical History: Reports: None Oncologic Surgical History: Reports: Biopsy of Breast Social & Family History - Family History Family Medical History: Noncontributory - Tobacco Use Smoking Status *Q: Never Smoker Years of Tobacco use: 18 Used Tobacco, but Quit: Yes Month Tobacco Last Used: 0 Second Hand Smoke Exposure: No - Caffeine Use Caffeine Use: Reports: Coffee - Alcohol Use Days Per Week of Alcohol Use: 0 - Recreational Drug Use Recreational Drug Use: No - Living Situation & Occupation Living situation: Reports: , with Family Occupation: Retired Review of Systems - Review of Systems Review Of Systems: ROS reveals no pertinent complaints other than HPI. ED EXAM, GENERAL - Physical Exam Exam: See Below Exam Limited By: No Limitations General Appearance: Alert, WD/WN, Moderate Distress, Obese Eye Exam: Bilateral Eye: EOMI, Normal Inspection, PERRL Ears: Normal External Exam, Normal Canal, Hearing Grossly Normal, Normal TMs Nose: Other (the patient has a laceration to the bridge of her nose and bleeding from the right nostril) Throat/Mouth: Normal Inspection, Normal Lips, Normal Teeth, Normal Gums, Normal Oropharynx, Normal Voice, No Airway Compromise Head: Atraumatic, Normocephalic Neck: Normal Inspection, Tender Midline (posterior ) Respiratory/Chest: No Respiratory Distress, Lungs Clear, Normal Breath Sounds, No Accessory Muscle Use, Chest Non-Tender Cardiovascular: Normal Peripheral Pulses, Regular Rate, Rhythm, No Edema, No Gallop, No JVD, No Murmur, No Rub GI/Abdominal: Normal Bowel Sounds, Soft, Non-Tender, No Organomegaly, No Distention, No Abnormal Bruit, No Mass, Other (obese) (Female) Exam: Deferred Rectal (Female) Exam: Deferred Back Exam: Normal Inspection, Full Range of Motion, NT Extremities: Normal Inspection, Normal Range of Motion, No Pedal Edema, Normal Capillary Refill, Other (right hip/pelvis pain with palpation) Neurological: Alert, Oriented, CN II-XII Intact, Normal Cognition, Normal Gait, Normal Reflexes, No Motor/Sensory Deficits Psychiatric: Normal Affect, Normal Mood Skin Exam: Warm, Dry, Normal Color, No Rash, Other (laceration to bridge of nose ) Lymphatic: No Adenopathy ED TRAUMA PROCEDURES - Laceration/Wound Repair Nose Lac/Wound Length In cm: 1.0 Appearance: Subcutaneous Anesthetic Type: Local Local Anesthesia - Lidocaine (Xylocaine): 1% Plain Local Anesthetic Volume: 1cc Skin Prep: Chlorhexidine (Hibiciens) Exploration/Debridement/Repair: Wound Explored, In a Bloodless Field, Explored to Base, No Foreign Material Found Closed With: Sutures Suture Size: other (5-0) # of Sutures: 4 Drain Placement: No Sterile Dressing Applied: None Tetanus Status Addressed: Yes Complications: No Course - Orders/Labs/Meds Orders: Active Orders 24 hr Category Date Time Status Cervical Spine wo Cont [CT] Urgent Exams 05/17/17 13:47 Ordered Head wo Cont [CT] Urgent Exams 05/17/17 13:47 Ordered Max Facial Sinus wo Cont [CT] Urgent Exams 05/17/17 13:47 Ordered Labs: Laboratory Tests 05/17/17 05/17/17 05/17/17 Range/Units 13:48 13:48 13:48 WBC 12.1 H (5.0-10.0) 10^3/uL RBC 4.36 (4.2-5.4) 10^6/uL Hgb 13.3 (12.0-16.0) g/dL Hct 39.1 (37.0-47.0) % MCV 89.7 (80-100) fL MCH 30.5 (27.0-34.0) pg MCHC 34.0 (33.0-35.0) g/dL Plt Count 237 (150-450) 10^3/uL Neut % (Auto) 80.5 H (42.2-75.2) % Lymph % (Auto) 10.6 L (20.5-50.1) % [place] % (Auto) 7.4 (2-8) % Eos % (Auto) 1.1 (1.0-3.0) % Baso % (Auto) 0.4 (0.0-1.0) % PT 9.5 (9.0-12.0) SEC INR 0.9 (0.9-1.2) Sodium 138 (135-145) mmol/L Potassium 4.3 (3.6-5.0) mmol/L Chloride 103 (101-111) mmol/L Carbon Dioxide 23.0 (21.0-31.0) mmol/L Anion Gap 16.3 BUN 21 H (7-18) mg/dL Creatinine 1.2 (0.6-1.3) mg/dL Est Cr Clr Drug Dosing TNP Estimated GFR (MDRD) 44 BUN/Creatinine Ratio 17.50 Glucose 240 H (74-105) mg/dL Calcium 8.7 (8.4-10.2) mg/dl Total Bilirubin 1.1 H (0.2-1.0) mg/dL AST 26 (10-42) IU/L ALT 17 (10-60) IU/L Alkaline Phosphatase 82 (42-121) IU/L Total Protein 7.2 (6.7-8.2) g/dl Albumin 3.4 (3.2-5.5) g/dl Globulin 3.8 Albumin/Globulin Ratio 0.89 Meds: Medications Discontinued Medications Generic Name Dose Route Start Last Admin Trade Name Ana PRN Reason Stop Dose Admin Bacitracin 1 dose 05/17/17 14:31 05/17/17 14:59 Bacitracin Oint 1 Gm TOP 05/17/17 14:32 1 dose ONETIME ONE Administration Lidocaine HCl 30 ml 05/17/17 14:31 05/17/17 14:59 Xylocaine-Mpf 1% INJECT 05/17/17 14:32 30 ml ONETIME ONE Administration Departure - Departure Time of Disposition: 15:04 Disposition: Home, Self-Care 01 Condition: Fair Clinical Impression: Fall from ground level Laceration of nose Qualifiers: Encounter type: initial encounter Qualified Code(s): S01.21XA - Laceration without foreign body of nose, initial encounter Nasal bone fracture Qualifiers: Encounter type: initial encounter Fracture type: closed Qualified Code(s): S02.2XXA - Fracture of nasal bones, initial encounter for closed fracture - Discharge Information Instructions: Fall Prevention in the Home, [id number], Laceration Care, Adult , [id number], Nasal Fracture Forms: ED Department Discharge Care Plan Goals: The patient was advised of the examination, CT and x-ray results during the visit. The laceration margins were well approximated during the visit. The patient was encouraged to keep the area clean and dry over the next 24 hours. The sutures should be removed in 5-7 days. The patient was encouraged to use Aquaphor applied to the area to keep the area moist. If the patient has any additional symptoms or concerns, the patient should follow-up with her primary care provider or return to the emergency department. - My Orders Last 24 Hours: My Active Orders 05/17/17 13:47 Cervical Spine wo Cont [CT] Urgent Head wo Cont [CT] Urgent Max Facial Sinus wo Cont [CT] Urgent - Assessment/Plan Last 24 Hours: My Active Orders 05/17/17 13:47 Cervical Spine wo Cont [CT] Urgent Head wo Cont [CT] Urgent Max Facial Sinus wo Cont [CT] Urgent
[2017-05-17 14:15] LABS: CHLORIDE,CL 103 mmol/L (101-111); SODIUM,NA 138 mmol/L (135-145)
[2017-05-17] MEDS ORDERED: Lidocaine 1% 30 ML SDV INJECT ONE (14:31)
[2017-05-17] MEDS ORDERED: Bacitracin Oint 1 GM U/D Packet TOP ONE (14:31)
== END 2017-05-17 15:10 | disposition home or self-care (01) ==
LOC: DL.ED 13:32
DX: S02.2XXA Fracture of nasal bones, initial encounter for closed fracture (principal); S01.21XA Laceration without foreign body of nose, initial encounter; I10 Essential (primary) hypertension; I25.10 Atherosclerotic heart disease of native coronary artery without angina pectoris; E78.00 Pure hypercholesterolemia, unspecified; K21.9 Gastro-esophageal reflux disease without esophagitis; E66.9 Obesity, unspecified; E11.9 Type 2 diabetes mellitus without complications; L40.9 Psoriasis, unspecified; Z98.49 Cataract extraction status, unspecified eye; Z95.5 Presence of coronary angioplasty implant and graft; Z90.49 Acquired absence of other specified parts of digestive tract; Z98.51 Tubal ligation status; Z98.890 Other specified postprocedural states; Z87.891 Personal history of nicotine dependence; Z87.440 Personal history of urinary (tract) infections; Z79.82 Long term (current) use of aspirin; Z79.02 Long term (current) use of antithrombotics/antiplatelets; Z79.4 Long term (current) use of insulin; Z79.899 Other long term (current) drug therapy; Z88.1 Allergy status to other antibiotic agents; Z88.2 Allergy status to sulfonamides; Z88.8 Allergy status to other drugs, medicaments and biological substances; Z91.040 Latex allergy status; W18.30XA Fall on same level, unspecified, initial encounter; Z68.41 Body mass index [BMI] 40.0-44.9, adult
CPT/HCPCS: 12011; 36415; 70450; 70486; 72125; 80053; 85025; 85610; 99284

== ENCOUNTER 2017-07-18 00:57 | Emergency (ER) | payer MEDICARE, OTHER ==
[2017-07-18 01:12] VITALS: BP 144/52
--- NOTE | 2017-07-18 01:12 | EDM.PDOC ---
ED HPI GENERAL MEDICAL PROBLEM - General Chief Complaint: Genitourinary Problem Stated Complaint: SICK Time Seen by Provider: 07/18/17 01:11 Source of Information: Reports: Patient History Limitations: Reports: No Limitations - History of Present Illness INITIAL COMMENTS - FREE TEXT/NARRATIVE: c/o sick thinks had recurrent UTI. Lower Abdomen Pain Score (Numeric/FACES): 9 - Related Data Allergies Allergy/AdvReac Type Severity Reaction Status Date / Time ciprofloxacin [From Cipro] Allergy Rash Verified 07/18/17 01:04 ciprofloxacin HCl Allergy Rash Verified 07/18/17 01:04 [From Cipro] latex Allergy Rash Verified 07/18/17 01:04 metformin HCl Allergy Other Verified 07/18/17 01:04 [From Glucophage] propoxyphene napsylate Allergy Rash Verified 07/18/17 01:04 [From Darvocet-N 100] sulfamethoxazole Allergy Rash Verified 07/18/17 01:04 [From Bactrim] trimethoprim [From Bactrim] Allergy Rash Verified 07/18/17 01:04 promethazine HCl AdvReac Weakness Verified 07/18/17 01:04 [From Phenergan] Home Meds: Home Meds Aspirin 1 tab PO DAILY 08/31/13 [History] Clopidogrel [Plavix] 1 tab PO DAILY 08/31/13 [History] glyBURIDE [Diabeta] 5 mg PO ACBREAKFAST 08/31/13 [History] Vitamin E 1 cap PO DAILY 08/13/14 [History] Ferrous Sulfate 1 tab PO BID 10/20/15 [History] Insuln Asp Prot/Insulin Aspart [NovoLOG Mix 70-30] 52 units SQ ACBREAKFAST 10/20 [History] Insuln Asp Prot/Insulin Aspart [NovoLOG Mix 70-30] 60 units SQ BEDTIME 10/20/15 [History] Ranitidine [Zantac] 1 tab PO BID PRN 10/20/15 [History] Travoprost (Benzalkonium) [Travoprost 0.004% Eye Drop] 1 drop EYEBOTH BEDTIME [History] Atenolol 1 tab PO BID 01/12/16 [History] Nitroglycerin [Nitrostat] 1 tab SL ASDIRECTED PRN 01/12/16 [History] Acetaminophen 500 mg PO Q4H PRN 04/11/17 [History] Ramipril [Altace] 5 mg PO BID 04/11/17 [History] Past Medical History HEENT History: Reports: Cataract, Glaucoma, Impaired Vision Other HEENT History: WEARS CORRECTIVE LENSES; FULL SET OF DENTURES; DERMATOCHALASIS; DETACHMENT PVD; DIABETIC RETINOPATHY-PROLIFERATIVE Cardiovascular History: Reports: CAD, High Cholesterol, Hypertension, Stents Respiratory History: Reports: None Gastrointestinal History: Reports: Chronic Constipation, GERD, Helicobacter Pylori, Hiatal Hernia Other Gastrointestinal History: BLACK STOOLS Genitourinary History: Reports: UTI, Recurrent Other Genitourinary History: 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 - Infectious Disease History Infectious Disease History: Reports: Chicken Pox, Measles, Mumps, Shingles - Past Surgical History HEENT Surgical History: Reports: Cataract Surgery Cardiovascular Surgical History: Reports: Coronary Artery Stent Respiratory Surgical History: Reports: None GI Surgical History: Reports: Cholecystectomy Female Surgical History: Reports: Breast Biopsy, Tubal Ligation Neurological Surgical History: Reports: None Oncologic Surgical History: Reports: Biopsy of Breast Social & Family History - Family History Family Medical History: Noncontributory - Tobacco Use Smoking Status *Q: Never Smoker Years of Tobacco use: 18 Used Tobacco, but Quit: Yes Month Tobacco Last Used: 0 Second Hand Smoke Exposure: No - Caffeine Use Caffeine Use: Reports: Coffee - Alcohol Use Days Per Week of Alcohol Use: 0 - Recreational Drug Use Recreational Drug Use: No - Living Situation & Occupation Living situation: Reports: , with Family Occupation: Retired ED ROS GENERAL - Review of Systems Review Of Systems: ROS reveals no pertinent complaints other than HPI. ED EXAM, RENAL/ - Physical Exam Exam: See Below Exam Limited By: No Limitations General Appearance: Alert, WD/WN, No Apparent Distress Ears: Hearing Grossly Normal Throat/Mouth: Normal Voice, No Airway Compromise Head: Atraumatic Neck: Non-Tender, Full Range of Motion Respiratory/Chest: No Respiratory Distress Cardiovascular: Regular Rate, Rhythm GI/Abdominal: Soft, Other (suprapubic discomfort.) Neurological: Alert, Oriented, Normal Cognition, Normal Gait, No Motor/Sensory Deficits Psychiatric: Normal Affect, Normal Mood Skin Exam: Warm, Dry, Normal Color Lymphatic: No Adenopathy Course - Vital Signs Last Recorded V/S: Last Vital Signs Temp 37.0 C 07/18/17 01:11 Pulse 64 07/18/17 01:11 Resp 20 07/18/17 01:11 BP 144/52 H 07/18/17 01:11 Pulse Ox 99 07/18/17 01:11 - Orders/Labs/Meds Labs: Laboratory Tests 07/18/17 Range/Units 01:02 Urine Color Dark yellow (YELLOW) Urine Appearance Turbid (CLEAR) Urine pH 5.5 (5.0-9.0) Ur Specific [place] 1.020 (1.005-1.030) Urine Protein >=300 H (NEGATIVE) Urine Glucose (UA) 500 H (NEGATIVE) Urine Ketones Trace H (NEGATIVE) Urine Occult Blood Large H (NEGATIVE) Urine Nitrite Positive H (NEGATIVE) Urine Bilirubin Small H (NEGATIVE) Urine Urobilinogen 1.0 (0.2-1.0) mg/dL Ur Leukocyte Esterase Small H (NEGATIVE) Urine RBC >100 H /HPF Urine WBC >100 H (0-5/HPF) /HPF Ur Epithelial Cells Many H /HPF Amorphous Sediment Moderate H (0/HPF) /HPF Urine Bacteria Many H (0-FEW/HPF) /HPF Urine Mucus Moderate H /LPF - Re-Assessments/Exams Free Text/Narrative Re-Assessment/Exam: 07/18/17 01:25 results discussed with pt. Departure - Departure Time of Disposition: 01:25 Disposition: Home, Self-Care 01 Condition: Good Clinical Impression: UTI, Urinary tract infectious disease - Discharge Information Instructions: Urinary Tract Infection, Adult, [id number] Forms: ED Department Discharge Additional Instructions: 1) drink lots of liquids 2) try cranberry juice 3) recheck as needed rx given; macrobid 100mg bid x 20 pyridium 100mg tid prn x 12
== END 2017-07-18 01:30 | disposition home or self-care (01) ==
LOC: DL.ED 00:57
DX: N39.0 Urinary tract infection, site not specified (principal); I10 Essential (primary) hypertension; E11.9 Type 2 diabetes mellitus without complications; Z88.1 Allergy status to other antibiotic agents; Z88.2 Allergy status to sulfonamides; Z88.8 Allergy status to other drugs, medicaments and biological substances; Z79.82 Long term (current) use of aspirin; Z79.4 Long term (current) use of insulin; Z79.899 Other long term (current) drug therapy
CPT/HCPCS: 81001; 99283

== ENCOUNTER 2017-07-18 22:06 | Inpatient (IN) | payer MEDICARE, OTHER ==
--- NOTE | 2017-07-18 22:26 | EDM.PDOC ---
ED HPI GENERAL MEDICAL PROBLEM - General Chief Complaint: General Stated Complaint: WHOLE BODY IS HURTING,[id number] Time Seen by Provider: 07/18/17 22:35 Source of Information: Reports: Patient History Limitations: Reports: No Limitations - History of Present Illness INITIAL COMMENTS - FREE TEXT/NARRATIVE: patient comes emergency Department today with complaints of generalized body aches weakness and fatigue. The patient was seen in the emergency department this morning for lower abdominal pain pressure and dysuria was diagnosed with a urinary tract infection sent home on Pyridium and Macrobid. Throughout the day she has developed a fever and body aches. She has little to no appetite. She has had some nausea but no vomiting. Her pain in her lower abdomen has radiated to her bilateral flanks. She has not had any diarrhea. Over the past 4 months she has been struggling to clear up a urinary tract infection that has been recurrent and has been treated 5 times. She does have a appointment with a urologist beginning of August for evaluation of the recurrent UTIs. She has never had any symptoms systemically like this before with her UTIs. Bilateral Leg Pain Score (Numeric/FACES): 10 Lower Abdomen Pain Score (Numeric/FACES): 7 - Related Data Allergies Allergy/AdvReac Type Severity Reaction Status Date / Time ciprofloxacin [From Cipro] Allergy Rash Verified 07/18/17 22:17 ciprofloxacin HCl Allergy Rash Verified 07/18/17 22:17 [From Cipro] latex Allergy Rash Verified 07/18/17 22:17 metformin HCl Allergy Other Verified 07/18/17 22:17 [From Glucophage] propoxyphene napsylate Allergy Rash Verified 07/18/17 22:17 [From Darvocet-N 100] sulfamethoxazole Allergy Rash Verified 07/18/17 22:17 [From Bactrim] trimethoprim [From Bactrim] Allergy Rash Verified 07/18/17 22:17 promethazine HCl AdvReac Weakness Verified 07/18/17 22:17 [From Phenergan] Home Meds: Home Meds Aspirin 1 tab PO DAILY 08/31/13 [History] Clopidogrel [Plavix] 1 tab PO DAILY 08/31/13 [History] glyBURIDE [Diabeta] 5 mg PO ACBREAKFAST 08/31/13 [History] Vitamin E 1 cap PO DAILY 08/13/14 [History] Ferrous Sulfate 1 tab PO BID 10/20/15 [History] Insuln Asp Prot/Insulin Aspart [NovoLOG Mix 70-30] 52 units SQ ACBREAKFAST 10/20 [History] Insuln Asp Prot/Insulin Aspart [NovoLOG Mix 70-30] 60 units SQ BEDTIME 10/20/15 [History] Ranitidine [Zantac] 1 tab PO BID PRN 10/20/15 [History] Travoprost (Benzalkonium) [Travoprost 0.004% Eye Drop] 1 drop EYEBOTH BEDTIME [History] Atenolol 1 tab PO BID 01/12/16 [History] Nitroglycerin [Nitrostat] 1 tab SL ASDIRECTED PRN 01/12/16 [History] Acetaminophen 500 mg PO Q4H PRN 04/11/17 [History] Ramipril [Altace] 5 mg PO BID 04/11/17 [History] Hydrochlorothiazide PO DAILY 07/18/17 [History] Past Medical History HEENT History: Reports: Cataract, Glaucoma, Impaired Vision Other HEENT History: WEARS CORRECTIVE LENSES; FULL SET OF DENTURES; DERMATOCHALASIS; DETACHMENT PVD; DIABETIC RETINOPATHY-PROLIFERATIVE Cardiovascular History: Reports: CAD, High Cholesterol, Hypertension, Stents Respiratory History: Reports: None Gastrointestinal History: Reports: Chronic Constipation, GERD, Helicobacter Pylori, Hiatal Hernia Other Gastrointestinal History: BLACK STOOLS Genitourinary History: Reports: UTI, Recurrent 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 - Infectious Disease History Infectious Disease History: Reports: Chicken Pox, Measles, Mumps, Shingles - Past Surgical History HEENT Surgical History: Reports: Cataract Surgery Cardiovascular Surgical History: Reports: Coronary Artery Stent Respiratory Surgical History: Reports: None GI Surgical History: Reports: Cholecystectomy Female Surgical History: Reports: Breast Biopsy, Tubal Ligation Neurological Surgical History: Reports: None Oncologic Surgical History: Reports: Biopsy of Breast Social & Family History - Family History Family Medical History: Noncontributory - Tobacco Use Smoking Status *Q: Never Smoker Years of Tobacco use: 18 Used Tobacco, but Quit: Yes Month Tobacco Last Used: 0 Second Hand Smoke Exposure: No - Caffeine Use Caffeine Use: Reports: Coffee - Alcohol Use Days Per Week of Alcohol Use: 0 - Recreational Drug Use Recreational Drug Use: No - Living Situation & Occupation Living situation: Reports: , with Family Occupation: Retired ED ROS GENERAL - Review of Systems Review Of Systems: ROS reveals no pertinent complaints other than HPI. ED EXAM, GENERAL - Physical Exam Exam: See Below Exam Limited By: No Limitations General Appearance: Alert, WD/WN, No Apparent Distress Ears: Normal External Exam Nose: Normal Inspection Throat/Mouth: Normal Inspection, Normal Lips Head: Atraumatic, Normocephalic Neck: Normal Inspection, Supple, Non-Tender, Full Range of Motion Respiratory/Chest: No Respiratory Distress, Lungs Clear, Normal Breath Sounds, No Accessory Muscle Use, Chest Non-Tender Cardiovascular: Normal Peripheral Pulses, Regular Rate, Rhythm, No JVD Peripheral Pulses: 2+: Radial (L), Radial (R), Posterior Tibial (L), Posterior Tibial (R), Dorsalis Pedis (L), Dorsalis Pedis (R) GI/Abdominal: Normal Bowel Sounds, Soft, No Organomegaly, No Distention, Tender (mild tenderness in the suprapubic region. No guarding or rebound.) (Female) Exam: Deferred Rectal (Female) Exam: Deferred Back Exam: CVA Tenderness (L), CVA Tenderness (R) Extremities: Normal Inspection, Normal Range of Motion, Non-Tender, No Pedal Edema, Normal Capillary Refill Neurological: Alert, Oriented, CN II-XII Intact Psychiatric: Normal Affect, Normal Mood Skin Exam: Dry, Intact, Other (Flushed and hot to touch. ) Lymphatic: No Adenopathy Course - Vital Signs Last Recorded V/S: Last Vital Signs Temp 37.7 C 07/18/17 23:53 Pulse 82 07/18/17 22:20 Resp 20 07/18/17 22:20 BP 151/67 H 07/18/17 22:20 Pulse Ox 96 07/18/17 22:20 - Orders/Labs/Meds Orders: Active Orders 24 hr Category Date Time Status Peripheral IV Care [RC] . DIRECTED Care 07/18/17 22:24 Active CULTURE BLOOD [BC] Stat Lab 07/18/17 22:42 Results CULTURE BLOOD [BC] Stat Lab 07/18/17 22:56 Received CULTURE URINE [RM] Stat Lab 07/18/17 01:02 Received Sodium Chloride 0.9% [Normal Saline] 1,000 ml Med 07/18/17 22:45 Active IV ASDIRECTED Sodium Chloride 0.9% [Saline Flush] Med 07/18/17 22:24 Active 10 ml FLUSH ASDIRECTED PRN Blood Culture x2 Reflex Set [OM.PC] Stat Oth 07/18/17 22:24 Ordered Peripheral IV Insertion Adult [OM.PC] Stat Oth 07/18/17 22:22 Ordered Medication Orders Acetaminophen (Tylenol Extra Strength) 500 mg PO Q4H PRN PRN Reason: Fever Aspirin (Aspirin) mg PO DAILY [facility] Atenolol (Tenormin) mg PO BID [facility] Clopidogrel Bisulfate (Plavix) mg PO DAILY [facility] Ferrous Sulfate (Ferrous Sulfate) mg PO BID [facility] Heparin Sodium (Porcine) (Heparin Sodium) 5,000 units SUBCUT Q8HR [facility] Sodium Chloride (Normal Saline) 1,000 mls @ 125 mls/hr IV ASDIRECTED [facility] Last Admin: 07/18/17 22:57 Dose: 125 mls/hr Ceftriaxone Sodium 1 gm/ (Sodium Chloride) 50 mls @ 100 mls/hr IV Q24H [facility] Sodium Chloride (Normal Saline) 1,000 mls @ 125 mls/hr IV ASDIRECTED [facility] Non-Formulary Medication (Glyburide [Diabeta]) 5 mg PO ACBREAKFAST [facility] Non-Formulary Medication (Insuln Asp Prot/Insulin Aspart [Novolog Mix 70-30]) 52 units SQ ACBREAKFAST [facility] Non-Formulary Medication (Ranitidine [Zantac]) 1 tab PO BID PRN PRN Reason: Heartburn Non-Formulary Medication (Travoprost (Benzalkonium) [Travoprost 0.004% Eye Drop] ) 1 drop EYEBOTH BEDTIME [facility] Non-Formulary Medication (Vitamin E [Vitamin E]) 1 cap PO DAILY [facility] Ondansetron HCl (Zofran) 4 mg IVPUSH Q6H PRN PRN Reason: Nausea/Vomiting Ramipril (Altace) 5 mg PO BID [facility] Sodium Chloride (Saline Flush) 10 ml FLUSH ASDIRECTED PRN PRN Reason: Keep Vein Open Last Admin: 07/18/17 22:59 Dose: 10 ml Labs: Laboratory Tests 07/18/17 07/18/17 07/18/17 Range/Units 22:42 22:56 22:56 WBC (5.0-10.0) 10^3/uL RBC (4.2-5.4) 10^6/uL Hgb (12.0-16.0) g/dL Hct (37.0-47.0) % MCV (80-100) fL MCH (27.0-34.0) pg MCHC (33.0-35.0) g/dL Plt Count (150-450) 10^3/uL Neut % (Auto) (42.2-75.2) % Lymph % (Auto) (20.5-50.1) % [place] % (Auto) (2-8) % Eos % (Auto) (1.0-3.0) % Baso % (Auto) (0.0-1.0) % Sodium 137 (135-145) mmol/L Potassium 3.9 (3.6-5.0) mmol/L Chloride 101 (101-111) mmol/L Carbon Dioxide 25.0 (21.0-31.0) mmol/L Anion Gap 14.9 BUN 23 H (7-18) mg/dL Creatinine 1.1 (0.6-1.3) mg/dL Est Cr Clr Drug Dosing 36.78 mL/min Estimated GFR (MDRD) 48 BUN/Creatinine Ratio 20.90 Glucose 171 H (74-105) mg/dL Lactic Acid 1.6 (0.5-2.2) mmol/L Calcium 8.8 (8.4-10.2) mg/dl Total Bilirubin 1.1 H (0.2-1.0) mg/dL AST 22 (10-42) IU/L ALT 17 (10-60) IU/L Alkaline Phosphatase 88 (42-121) IU/L C-Reactive Protein 17.1 H (0.0-1.3) mg/dL Total Protein 7.4 (6.7-8.2) g/dl Albumin 3.7 (3.2-5.5) g/dl Globulin 3.7 Albumin/Globulin Ratio 1.00 07/18/17 Range/Units 22:56 WBC 18.7 H (5.0-10.0) 10^3/uL RBC 4.39 (4.2-5.4) 10^6/uL Hgb 13.1 (12.0-16.0) g/dL Hct 39.4 (37.0-47.0) % MCV 89.7 (80-100) fL MCH 29.8 (27.0-34.0) pg MCHC 33.2 (33.0-35.0) g/dL Plt Count 175 (150-450) 10^3/uL Neut % (Auto) 84.1 H (42.2-75.2) % Lymph % (Auto) 7.7 L (20.5-50.1) % [place] % (Auto) 7.4 (2-8) % Eos % (Auto) 0.6 L (1.0-3.0) % Baso % (Auto) 0.2 (0.0-1.0) % Sodium (135-145) mmol/L Potassium (3.6-5.0) mmol/L Chloride (101-111) mmol/L Carbon Dioxide (21.0-31.0) mmol/L Anion Gap BUN (7-18) mg/dL Creatinine (0.6-1.3) mg/dL Est Cr Clr Drug Dosing mL/min Estimated GFR (MDRD) BUN/Creatinine Ratio Glucose (74-105) mg/dL Lactic Acid (0.5-2.2) mmol/L Calcium (8.4-10.2) mg/dl Total Bilirubin (0.2-1.0) mg/dL AST (10-42) IU/L ALT (10-60) IU/L Alkaline Phosphatase (42-121) IU/L C-Reactive Protein (0.0-1.3) mg/dL Total Protein (6.7-8.2) g/dl Albumin (3.2-5.5) g/dl Globulin Albumin/Globulin Ratio Meds: Medications Generic Name Dose Route Start Last Admin Trade Name Freq PRN Reason Stop Dose Admin Acetaminophen 500 mg 07/19/17 00:20 Tylenol Extra Strength PO Q4H PRN Fever Aspirin mg 07/19/17 09:00 Aspirin PO DAILY [facility] Atenolol mg 07/19/17 09:00 Tenormin PO BID [facility] Clopidogrel Bisulfate mg 07/19/17 09:00 Plavix PO DAILY [facility] Ferrous Sulfate mg 07/19/17 09:00 Ferrous Sulfate PO BID [facility] Heparin Sodium (Porcine) 5,000 units 07/19/17 06:00 Heparin Sodium SUBCUT Q8HR [facility] Sodium Chloride 1,000 mls @ 125 mls/hr 07/18/17 22:45 07/18/17 22:57 Normal Saline IV 125 mls/hr ASDIRECTED [facility] Administration Ceftriaxone Sodium 1 gm/ 50 mls @ 100 mls/hr 07/19/17 00:30 Sodium Chloride IV Q24H [facility] Sodium Chloride 1,000 mls @ 125 mls/hr 07/19/17 00:15 Normal Saline IV ASDIRECTED [facility] Non-Formulary Medication 5 mg 07/19/17 06:00 Glyburide [Diabeta] PO ACBREAKFAST [facility] Non-Formulary Medication 52 units 07/19/17 06:00 Insuln Asp Prot/Insulin Aspart [Novolog Mix 70-30] SQ ACBREAKFAST [facility] Non-Formulary Medication 1 tab 07/19/17 00:20 Ranitidine [Zantac] PO BID PRN Heartburn Non-Formulary Medication 1 drop 07/19/17 21:00 Travoprost (Benzalkonium) [Travoprost 0.004% Eye Drop] EYEBOTH BEDTIME [facility] Non-Formulary Medication 1 cap 07/19/17 09:00 Vitamin E [Vitamin E] PO DAILY [facility] Ondansetron HCl 4 mg 07/19/17 00:15 Zofran IVPUSH Q6H PRN Nausea/Vomiting Ramipril 5 mg 07/19/17 09:00 Altace PO BID [facility] Sodium Chloride 10 ml 07/18/17 22:24 07/18/17 22:59 Saline Flush FLUSH 10 ml ASDIRECTED PRN Administration Keep Vein Open Discontinued Medications Generic Name Dose Route Start Last Admin Trade Name Freq PRN Reason Stop Dose Admin Acetaminophen 650 mg 07/18/17 22:38 07/18/17 22:59 Tylenol PO 07/18/17 22:39 650 mg NOW ONE Administration Ceftriaxone Sodium 500 mg/ 50 mls @ 100 mls/hr 07/18/17 22:38 07/18/17 23:01 Sodium Chloride IV 07/18/17 23:07 100 mls/hr ONETIME ONE Administration Ondansetron HCl 4 mg 07/18/17 22:38 07/18/17 23:03 Zofran IV 07/18/17 22:39 Not Given ONETIME ONE - Re-Assessments/Exams Free Text/Narrative Re-Assessment/Exam: 07/18/17 22:45 IV NS 250ml bolus Zofran Tylenol Ceftriaxone 2 grams. Tried to see if urine from this morning could be cultured. Blood cultures x 2. 07/19/17 00:45 although the patient states that she feels much better following the fluid administration and the antibiotic I think with her continued urinary tract infection that is clearly spread to a systemic pyelonephritis that has been treated on and off for the past 4 months and her comorbidities and her laboratory evaluation and inpatient/observation management is appropriate at this time. The patient is in agreement with this. Spoke with the hospitalist he came and saw the patient in the emergency department and did agree to admit her. Departure - Departure Time of Disposition: 00:25 Disposition: Admitted As Inpatient 66 Clinical Impression: Pyelonephritis - Discharge Information ED Communication - Discussed Case With (1) Discussed Case With (1): Admitting Provider (Called and spoke with La. He came and saw the patient in the emergency department. After evaluation and exam in the ED the patient was admitted by Dr. Tovar.) - My Orders Last 24 Hours: My Active Orders 07/18/17 01:02 CULTURE URINE [RM] Stat 07/18/17 22:22 Peripheral IV Insertion Adult [OM.PC] Stat 07/18/17 22:24 Peripheral IV Care [RC] . DIRECTED Sodium Chloride 0.9% [Saline Flush] 10 ml FLUSH ASDIRECTED PRN Blood Culture x2 Reflex Set [OM.PC] Stat 07/18/17 22:42 CULTURE BLOOD [BC] Stat 07/18/17 22:45 Sodium Chloride 0.9% [Normal Saline] 1,000 ml IV ASDIRECTED 07/18/17 22:56 CULTURE BLOOD [BC] Stat - Assessment/Plan Last 24 Hours: My Active Orders 07/18/17 01:02 CULTURE URINE [RM] Stat 07/18/17 22:22 Peripheral IV Insertion Adult [OM.PC] Stat 07/18/17 22:24 Peripheral IV Care [RC] . DIRECTED Sodium Chloride 0.9% [Saline Flush] 10 ml FLUSH ASDIRECTED PRN Blood Culture x2 Reflex Set [OM.PC] Stat 07/18/17 22:42 CULTURE BLOOD [BC] Stat 07/18/17 22:45 Sodium Chloride 0.9% [Normal Saline] 1,000 ml IV ASDIRECTED 07/18/17 22:56 CULTURE BLOOD [BC] Stat
[2017-07-18] MEDS ORDERED: Ondansetron 4 MG/2 ML SDV IV ONE (22:38)
[2017-07-18] MEDS ORDERED: Acetaminophen 325 MG Tab PO ONE (22:38)
[2017-07-18] MEDS ORDERED: cefTRIAXone 500 MG in Sodium Chloride 0.9% 50 ML IV ONE (22:38)
[2017-07-18] MEDS: Sodium Chloride 0.9% 1,000 ML IV SCH (22:57)
[2017-07-18] MEDS: Sodium Chloride 0.9% 10 ML Syringe FLUSH PRN (22:59)
[2017-07-19] MEDS ORDERED: Ondansetron 4 MG/2 ML SDV IVPUSH PRN (00:15)
[2017-07-19] MEDS ORDERED: Sodium Chloride 0.9% 1,000 ML IV SCH (00:15)
[2017-07-19] MEDS: cefTRIAXone 1 GM in Sodium Chloride 0.9% 50 ML IV SCH (00:50)
[2017-07-19] MEDS: Acetaminophen 500 MG Tab PO PRN ×4 (01:07→20:04)
[2017-07-19] MEDS: Heparin Sodium 5,000 Units/ML Vial SUBCUT SCH ×3 (05:53→21:35)
[2017-07-19] MEDS: Sodium Chloride 0.9% 1,000 ML IV SCH ×3 (05:57→20:07)
[2017-07-19] MEDS ORDERED: Insulin Aspart Protamine/Insulin Aspart 70-30 100 Units/ML 10 ML Vial SUBCUT SCH (06:00)
[2017-07-19] MEDS ORDERED: glyBURIDE 5 MG Tab PO SCH (06:00)
[2017-07-19] MEDS: Ferrous Sulfate 325 MG Tab PO SCH ×2 (08:51→17:26)
[2017-07-19] MEDS: Aspirin 325 MG Tab PO SCH (08:51)
[2017-07-19] MEDS: Clopidogrel 75 MG Tab PO SCH (08:51)
[2017-07-19] MEDS: Ramipril 5 MG Cap PO SCH ×2 (08:51→21:33)
[2017-07-19] MEDS: Atenolol 50 MG Tab PO SCH ×2 (08:52→21:34)
[2017-07-19] MEDS: Cholecalciferol (Vitamin D3) 400 Unit Tab PO SCH (08:53)
[2017-07-19] MEDS ORDERED: Famotidine 20 MG Tab PO PRN (09:00)
[2017-07-19] MEDS: Insulin Aspart Protamine/Insulin Aspart 70-30 100 Units/ML 10 ML Vial SUBCUT SCH (09:22)
--- NOTE | 2017-07-19 10:20 | CT ---
CLINICAL HISTORY: 76 year-old 226 pound female with history of cholecystectomy and appendectomy now e xperiencing lower abdominal pain. SCAN TECHNIQUE: Volume acquisition of data from an unenhanced CT scan of the abdomen and pelvis sandeep fisher with the patient lying supine on the Siemens multislice CT scanner [place], [place]. All data archived in the PACS system for storage, reformatting axial/sagittal/tasha nal planes and study. INTERPRETATION: Abnormal. 1. Colonic diverticula identified in the hepatic flexure, distal descending and sigmoid colon. 2. *Subtle "dirty" fat in the right upper quadrant suggest focal inflammation, i.e., diverticulitis. No other intraperitoneal inflammatory changes and no sign of pelvic or abdominal mass lesion, mechani kvaitha bowel obstruction, ascites or free intraperitoneal air. 3. Isolated small 2 cm diameter round low attenuation (water density) cystlike lesion, tip lower righ t lobe of the liver. No sign of other intrahepatic mass (cystic or solid) lesion on this unenhanced e xam. No intra or extrahepatic biliary duct dilatation. 4. 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 Coronary artery CA++. 5. Calcifications outlining course of normal caliber but ectatic aorta iliac vessels. No aneurysm or dissection. Lingular atelectasis. 6. Calcified senescent appearing uterus. No adnexal mass lesions. Small infraumbilical herniation per itoneal fat. No other signs of ventral wall herniation or of incarcerated bowel. Large abdominal soft tissue pannus (fat). 7. Stomach, spleen, pancreas, adrenal glands and kidneys anatomically correct. Urinary bladder unrema rkable. CONCLUSION: Diverticulosis colon (inflammation hepatic flexure). Usual signs of senescence. Solitary hepatic cyst.
[2017-07-19] MEDS: Ibuprofen 200 MG Tab PO PRN ×2 (14:14→23:01)
--- NOTE | 2017-07-19 15:18 | HP ---
CHIEF COMPLAINT: Poor appetite and low back pain. HISTORY OF PRESENTING ILLNESS: Ms. Erika Watt is a 76-year-old female with medical history of hypertension and diabetes mellitus. The patient presented to emergency room with complaint of low back pain. She has been having these symptoms for about 4 months, on and off. Over the past 3 days, the intensity of the pain has increased. It sometimes radiates down the right lower extremity to the knee. She has had low-grade chills and questionable fever, has generalized aches and pains. She has not vomited and also denies nausea. However, she has not been eating mulch. Has not had diarrhea. The patient has been treated 5 previous times for urinary tract infection. She is scheduled to follow up with Urology. Has actually been seen once in [place] for these problems. Again no nausea, no vomiting. In the emergency room, she is not hypotensive and not tachycardic REVIEW OF SYSTEMS: Constitutional, cardiac, respiratory, gastrointestinal, genitourinary, neurologic, psychiatric, allergy, and immunology were reviewed. No other pertinent findings. PAST MEDICAL HISTORY: 1. Diabetes mellitus type 2. 2. Hypertension. 3. Coronary artery disease. CURRENT MEDICATIONS: 1. Aspirin. 2. Plavix. 3. Glyburide. 4. Insulin 70/30. 5. Ranitidine. 6. Atenolol. 7. Ramipril. 8. Hydrochlorothiazide. SOCIAL HISTORY: Does not smoke. Does not use alcohol. FAMILY HISTORY: Reviewed and considered noncontributory. OBJECTIVE: General: The patient is alert, oriented to place, time, and person. Head: Atraumatic and normocephalic. Ear, Nose, and Throat: Unremarkable. Neck: Supple. Chest: Clear to auscultation. Cardiovascular: Regular rate and rhythm. Abdomen: Soft and nontender. Extremities: No pedal edema. No finger clubbing. Skin: No rash. Endocrine: No thyromegaly. Psychiatric: Judgment and insight are good. Lymphatic: No cervical lymphadenopathy. Genitourinary: No costovertebral angle tenderness. Vital Signs: Reviewed. All within normal limits. Blood pressure 151/67, pulse 82 per minute, respiratory rate 20 per minute, and temperature 37.7. LABORATORY DATA: White count is 18,000. Hemoglobin is normal. Basic metabolic panel is unremarkable. Her liver enzymes are normal. ASSESSMENT: 1. Recurrent urinary tract infection. The patient has low-grade fever, generalized body malaise, aches and pains and low back pain. This probably due to UTI. She could have pyelonephritis given elevated white count. However, she does not have costovertebral angle tenderness. 2. Diabetes mellitus. The patient is on insulin and oral hypoglycemic agents. Monitor her blood sugar at home. 3. Hypertension. Blood pressure is actually on the high side at this point. 4. Coronary artery disease. Patient is status post previous stent placement and is on Plavix and aspirin. Last stent was more than a year ago. PLAN: 1. Admit patient to medical floor. 2. Blood cultures obtained. 3. Urine culture. 4. Empiric antibiotics, intravenous ceftriaxone. 5. Patient was treated earlier with Macrobid, which I consider inadequate for her clinical condition. We will see how she responds to the Rocephin. She probably be able to do care with Augmentin eventually. She is allergic to ciprofloxacin and to quinolones. [facility] /[id number]
[2017-07-19] MEDS ORDERED: [UNRECOGNIZED DRUG - REMARK] SQ SCH (21:00)
[2017-07-20] MEDS: cefTRIAXone 1 GM in Sodium Chloride 0.9% 50 ML IV SCH ×2 (00:03→23:34)
[2017-07-20] MEDS: Acetaminophen 500 MG Tab PO PRN ×4 (02:12→21:23)
[2017-07-20] MEDS: Heparin Sodium 5,000 Units/ML Vial SUBCUT SCH ×3 (06:07→21:30)
[2017-07-20] MEDS: Cholecalciferol (Vitamin D3) 400 Unit Tab PO SCH (08:22)
[2017-07-20] MEDS: Clopidogrel 75 MG Tab PO SCH (08:22)
[2017-07-20] MEDS: Aspirin 325 MG Tab PO SCH (08:22)
[2017-07-20] MEDS: glyBURIDE 5 MG Tab PO SCH (08:22)
[2017-07-20] MEDS: Ferrous Sulfate 325 MG Tab PO SCH ×2 (08:22→17:22)
[2017-07-20] MEDS: Hydrochlorothiazide 25 MG Tab PO SCH (08:22)
[2017-07-20] MEDS: Atenolol 50 MG Tab PO SCH ×2 (08:23→21:26)
[2017-07-20] MEDS: Ramipril 5 MG Cap PO SCH ×2 (08:23→21:12)
[2017-07-20] MEDS: Insulin Aspart Protamine/Insulin Aspart 70-30 100 Units/ML 10 ML Vial SUBCUT SCH (08:29)
[2017-07-20] MEDS: metroNIDAZOLE/Normal Saline 500 MG in Premix Bag 100 BAG IV SCH ×2 (10:23→17:22)
[2017-07-20] MEDS: Sodium Chloride 0.9% 10 ML Syringe FLUSH PRN ×4 (10:24→23:32)
[2017-07-20] MEDS: Insulin NPH/Insulin Regular,Human 70-30 100 Units/ML 10 ML Vial SUBCUT SCH ×2 (10:26→17:18)
[2017-07-20] MEDS: Menthol/Methyl Salicylate 85 GM Tube TOP PRN ×2 (10:34→23:13)
--- NOTE | 2017-07-20 10:59 | PN ---
DATE: 07/20/2017 SUBJECTIVE: Ms. Erika Watt is admitted with acute pyelonephritis and also found to have acute diverticulitis, most probably today. She offers no new complaints. No fever overnight. Denies nausea or vomiting. Appetite is improved. She has low back pain that radiates into the right lower extremity. REVIEW OF SYSTEMS: Constitutional, cardiac, respiratory, gastrointestinal, and genitourinary system were reviewed. No other pertinent findings except as noted above. OBJECTIVE: General: The patient is alert; oriented to place, time, and person. Head: Atraumatic and normocephalic. Ears, Nose, and Throat: Unremarkable. Neck: Supple. Chest: Clear to auscultation. Cardiovascular System: Regular rate and rhythm. Abdomen: Soft and nontender. Extremities: No pedal edema. Vital Signs: Reviewed. Temperature is normal now. LABORATORY DATA: Blood culture from yesterday came back positive with gram- negative rods. Urine culture is growing E. coli. The CT scan of the abdomen showed findings suggestive of possible diverticulitis. ASSESSMENT: 1. Acute pyelonephritis. The patient presented with a low back pain and generalized body malaise. She was also having low-grade fever. Temperature was 38.5. 2. Sepsis. Likely secondary to acute pyelonephritis. She did have fever and also had significant leukocytosis. White count of 18,000. 3. Possible acute diverticulitis. Suggested by CT scan of the abdomen. 4. Diabetes mellitus, suboptimal control. She was hypoglycemic this morning. 5. Hypertension. Blood pressure is within acceptable limits. 6. Colon artery disease, status post previous stents. PLAN: 1. The patient's blood culture again came back with gram-negative rods from yesterday. I will go ahead and obtain repeat cultures. 2. Keep the patient on intravenous Rocephin. Clinically, she seems to be improving. 3. Her cultures again comes back positive, we will consider obtaining an echocardiogram and also consider changing the antibiotics to possibly Zosyn. 4. I will go ahead and add intravenous Flagyl because of possible diverticulitis. 5. Reduce insulin doses to 30 units two times a day because of hypoglycemia. 6. Discontinue intravenous fluids. 7. Consult Physical Therapy. Consult Occupational Therapy. [facility] /[id number]
[2017-07-20] MEDS: Latanoprost 0.005% Ophth Soln 2.5 ML Bottle EYEBOTH SCH (21:28)
[2017-07-21] MEDS: Sodium Chloride 0.9% 10 ML Syringe FLUSH PRN ×5 (01:28→20:19)
[2017-07-21] MEDS: metroNIDAZOLE/Normal Saline 500 MG in Premix Bag 100 BAG IV SCH ×3 (01:30→17:30)
[2017-07-21] MEDS: Acetaminophen 500 MG Tab PO PRN ×4 (03:32→22:48)
[2017-07-21] MEDS: Heparin Sodium 5,000 Units/ML Vial SUBCUT SCH ×3 (05:54→21:07)
[2017-07-21] MEDS: Ibuprofen 200 MG Tab PO PRN (06:04)
[2017-07-21] MEDS: glyBURIDE 5 MG Tab PO SCH (07:50)
[2017-07-21] MEDS: Ferrous Sulfate 325 MG Tab PO SCH ×2 (07:50→17:25)
[2017-07-21] MEDS: Meropenem 1 GM in Sodium Chloride 0.9% 100 ML IV SCH ×2 (07:51→20:21)
[2017-07-21] MEDS ORDERED: Insulin NPH/Insulin Regular,Human 70-30 100 Units/ML 10 ML Vial SUBCUT SCH (08:00)
[2017-07-21] MEDS: Clopidogrel 75 MG Tab PO SCH (09:32)
[2017-07-21] MEDS: Aspirin 325 MG Tab PO SCH (09:32)
[2017-07-21] MEDS: Cholecalciferol (Vitamin D3) 400 Unit Tab PO SCH (09:33)
[2017-07-21] MEDS: Ramipril 5 MG Cap PO SCH ×2 (09:33→20:29)
[2017-07-21] MEDS: Hydrochlorothiazide 25 MG Tab PO SCH (09:33)
[2017-07-21] MEDS: Atenolol 50 MG Tab PO SCH ×2 (09:34→20:30)
[2017-07-21] MEDS ORDERED: Insulin Aspart 100 Units/ML 3 ML Pen SUBCUT ONE (12:00)
[2017-07-21] MEDS: Insulin Aspart 100 Units/ML 3 ML Pen SUBCUT PRN ×2 (12:42→17:22)
[2017-07-21] MEDS: Menthol/Methyl Salicylate 85 GM Tube TOP PRN (14:53)
[2017-07-21] MEDS: [UNRECOGNIZED DRUG - REMARK] SUBCUT SCH ×2 (17:23→20:39)
[2017-07-21] MEDS: Latanoprost 0.005% Ophth Soln 2.5 ML Bottle EYEBOTH SCH (20:33)
--- NOTE | 2017-07-21 21:04 | PN ---
DATE: 07/21/2017 SUBJECTIVE: Mrs. Watt is a 76-year-old lady who presented feeling vaguely unwell and with a fever. She was found to have an elevated white count around 19,000. Urine culture returned positive for E. coli. Multiple blood cultures have also returned positive for E coli. CT scan at the time of admission also suggested diverticulitis. Several of the blood cultures have been positive after IV antibiotics were initiated, and today, we made changes in her medications. She had been on ceftriaxone, and this was discontinued. She is on Flagyl to cover for the possibility of diverticulitis and this was continued. After examining the culture results and the FELY, it was decided to place her on meropenem 1 g IV every 12 hours. New blood cultures have been ordered for July 23. We have also placed orders for p.r.n. blood cultures if her temperature rises above 102. Clinically, Mrs. Watt seems to be doing better. Vital signs have been stable. She is tolerating 100% of her meals. She has continued to run low- grade temperatures. Her T-max overnight was 100.3, yesterday was 100.5. She has been afebrile during the day today. An echocardiogram was performed today, and the results are pending. We talked to Mrs. Watt about swing bed admission, and she is in favor of this. We will need to continue IV antibiotics for some time because of the high - grade bacteremia. The incoming hospitalist, Dr. Johnston will discuss this with Infectious Disease and formulate a long-term plan. We may also need to obtain a transesophageal echocardiogram. At some point, we may also need to repeat the CT scan to look for a collection that would explain the fact that her blood continues to be seeded by bacteria. Otherwise, her vital signs are stable. She is taking in fluids. She is voiding and moving her bowels, and she is tolerating her diet. LABORATORY DATA: Other lab work today included CBC with a white count of 10.7, hemoglobin and hematocrit 11 and 33, and platelets were normal. Blood sugars have been running over 150 to low 200s. Her medications were reviewed, and the only change made was to discontinue ceftriaxone and add meropenem. OBJECTIVE: General: She is seated comfortably in her recliner. She voices no new concerns or complaints. She denied any chest pain or shortness of breath. No calf or leg pain. Vital Signs: Blood pressure was 147/61, pulse 67, respiratory rate 20, oxygen saturation 100% on room air, and she is afebrile. HEENT: Unremarkable. Chest: Clear, but diminished bilateral breath sounds. Heart: Regular rate and rhythm. Abdomen: Obese, soft, and benign. Calves were soft and nontender. PLAN: We will continue the present management. We will admit her to swing bed tomorrow and continue the long-term IV antibiotic therapy. We will also consider placing a PICC line, but we will wait until we have negative blood cultures following the change in the antibiotics. Dr. Johnston will manage these issues going forward. [facility] /[id number] MTDD
[2017-07-22] MEDS: Sodium Chloride 0.9% 10 ML Syringe FLUSH PRN ×4 (01:49→09:23)
[2017-07-22] MEDS: metroNIDAZOLE/Normal Saline 500 MG in Premix Bag 100 BAG IV SCH ×3 (01:52→09:25)
[2017-07-22] MEDS: Heparin Sodium 5,000 Units/ML Vial SUBCUT SCH ×2 (06:03→13:59)
[2017-07-22] MEDS: glyBURIDE 5 MG Tab PO SCH (07:51)
[2017-07-22] MEDS: Ferrous Sulfate 325 MG Tab PO SCH (07:51)
[2017-07-22] MEDS: Acetaminophen 500 MG Tab PO PRN (07:51)
[2017-07-22] MEDS: Meropenem 1 GM in Sodium Chloride 0.9% 100 ML IV SCH (07:53)
[2017-07-22] MEDS: Clopidogrel 75 MG Tab PO SCH (09:15)
[2017-07-22] MEDS: Hydrochlorothiazide 25 MG Tab PO SCH (09:15)
[2017-07-22] MEDS: Aspirin 325 MG Tab PO SCH (09:15)
[2017-07-22] MEDS: Cholecalciferol (Vitamin D3) 400 Unit Tab PO SCH (09:16)
[2017-07-22] MEDS: Ramipril 5 MG Cap PO SCH (09:16)
[2017-07-22] MEDS: [UNRECOGNIZED DRUG - REMARK] SUBCUT SCH (09:18)
[2017-07-22] MEDS: Atenolol 50 MG Tab PO SCH (09:21)
[2017-07-22] MEDS: Ibuprofen 200 MG Tab PO PRN (10:46)
--- NOTE | 2017-07-22 12:41 | PCM.DCSUM1 ---
Discharge Summary - Hospital Course Free Text/Narrative:: 76-year-old female with past medical history of diabetes mellitus, hypertension , urinary frequency presented to the emergency room with fever, chills, dysuria , urinary frequency, lower abdomen pain on the night of 07/18/17. On admission WBC 18.700. CRP 17.1. CT of abdomen reported diverticulitis in the right upper quadrant and 2 cm low-attenuation cystic-like mass in tip of low right lobe of liver. Temperature 101.8 Fahrenheit. Patient was started on Rocephin 1 g. Urine culture from 07/18/17 grew Escherichia coli and Streptococcus anginosus. Sensitivity was reported only for the Escherichia coli which is sensitive to ceftriaxone. 2 Blood cultures from 07/18/17 grew Escherichia coli, sensitive to ceftriaxone. One set of blood culture from 07/19/17 is heavily growing gram- negative rods. Blood cultures from 07/20/17 are still negative. On 07/20/17 patient was started on Flagyl 500 mg every 8 hours. Temperature 100.8 Fahrenheit on 07/20/17 at 9 PM. 100.2 on 07/21/17 at 3 AM. 99.9 Fahrenheit today at 7 AM. Yesterday her ceftriaxone was changed to meropenem 500 mg every 12 hours. Patient received ceftriaxone 1 g on , , , . She received 3 doses of meropenem. She is still on the Flagyl that was started on . Patient stated that she is feeling better. On exam she does not acutely look ill. No flank pain/tenderness. Last lab workup was done yesterday and WBC are 10.7 and neutrophils 77.1%. Patient's blood glucose prior to discharge was 48. Patient was not symptomatic. However she received 50 male of D 50. We'll give her on juice otherwise she will keep her nothing by mouth. I spoke to Dr. Griffin who recommended aspirating the liver lesion to rule out liver abscess. The patient was transferred to [facility] in [place]. Dr. Kim kindly accepted the patient. Ambulance crew were directly to check blood glucose every 15 minutes and to give orange juice and D50 as needed. Patient is transferred in stable condition - Discharge Data Discharge Date: 07/22/17 Discharge Disposition: DC/Tfer to Acute Hospital 02 Condition: Fair - Discharge Diagnosis/Problem(s) (1) Sepsis SNOMED Code(s): 61461439 ICD Code: A41.9 - SEPSIS, UNSPECIFIED ORGANISM Status: Acute Priority: High Current Visit: Yes (2) Diabetes SNOMED Code(s): 33374945 ICD Code: E11.9 - TYPE 2 DIABETES MELLITUS WITHOUT COMPLICATIONS Status: Chronic Current Visit: No Qualifiers: Diabetes mellitus type: type 2 Diabetes mellitus complication status: with unspecified complications Diabetes mellitus fci insulin use: unspecified fci insulin use status Qualified Code(s): E11.8 - Type 2 diabetes mellitus with unspecified complications (3) UTI (urinary tract infection) SNOMED Code(s): 75493107 ICD Code: N39.0 - URINARY TRACT INFECTION, SITE NOT SPECIFIED Status: Acute Priority: High Current Visit: No Qualifiers: Urinary tract infection type: site unspecified Hematuria presence: without hematuria Qualified Code(s): N39.0 - Urinary tract infection, site not specified - Patient Summary/Data Consults: Consultations 07/20/17 09:28 OT Evaluation and Treatment [CONS] Routine PT Evaluation and Treatment [CONS] Routine - Discharge Plan Home Medications: Home Meds Aspirin 1 tab PO DAILY 08/31/13 [History] Clopidogrel [Plavix] 1 tab PO DAILY 08/31/13 [History] glyBURIDE [Diabeta] 5 mg PO ACBREAKFAST 08/31/13 [History] Vitamin E 1 cap PO DAILY 08/13/14 [History] Ferrous Sulfate 1 tab PO BID 10/20/15 [History] Insuln Asp Prot/Insulin Aspart [NovoLOG Mix 70-30] 52 units SQ ACBREAKFAST 10/20 [History] Insuln Asp Prot/Insulin Aspart [NovoLOG Mix 70-30] 60 units SQ BEDTIME 10/20/15 [History] Ranitidine [Zantac] 1 tab PO BID PRN 10/20/15 [History] Atenolol 1 tab PO BID 01/12/16 [History] Nitroglycerin [Nitrostat] 1 tab SL ASDIRECTED PRN 01/12/16 [History] Acetaminophen 500 mg PO Q4H PRN 04/11/17 [History] Ramipril [Altace] 5 mg PO BID 04/11/17 [History] Hydrochlorothiazide 25 mg PO DAILY 07/18/17 [History] Latanoprost [Xalatan] 1 drop EYEBOTH BEDTIME 07/20/17 [History] Referrals: PCP,None [Primary Care Provider] - - General Info Date of Service: 07/22/17 - Review of Systems General: Reports: Weakness. Denies: Fever, Night Sweats, Appetite HEENT: Reports: No Symptoms Pulmonary: Reports: No Symptoms Cardiovascular: Reports: No Symptoms Gastrointestinal: Reports: No Symptoms Genitourinary: Reports: Dysuria, Frequency Musculoskeletal: Reports: No Symptoms Skin: Reports: No Symptoms Neurological: Reports: No Symptoms Psychiatric: Reports: No Symptoms - Patient Data Vitals - Most Recent: Last Vital Signs Temp 37.7 C 07/22/17 07:51 Pulse 70 07/22/17 09:21 Resp 20 07/22/17 07:00 BP 177/64 H 07/22/17 09:21 Pulse Ox 97 07/22/17 07:00 Weight - Most Recent: 102.603 kg I&O - Last 24 hours: Intake & Output 07/21/17 07/22/17 07/22/17 22:59 06:59 14:59 Intake Total 502 800 410 Balance 502 800 410 Lab Results - Last 24 hrs: Laboratory Results - last 24 hr 07/21/17 07/22/17 07/22/17 Range/Units 16:56 07:49 11:43 POC Glucose 207 H 145 H 65 L (83-110) mg/dl FELY Results - Last 24 hrs: Microbiology 07/19/17 11:38 Aerobic Blood Culture - Preliminary Blood - Venous NO GROWTH AFTER 3 DAYS Anaerobic Blood Culture - Final 07/19/17 11:46 Aerobic Blood Culture - Preliminary Blood - Venous - Lab Draw Anaerobic Blood Culture - Preliminary NO GROWTH AFTER 3 DAYS 07/20/17 10:25 Aerobic Blood Culture - Preliminary Blood NO GROWTH AFTER 2 DAYS Anaerobic Blood Culture - Preliminary NO GROWTH AFTER 2 DAYS Med Orders - Current: Current Medications Acetaminophen (Tylenol Extra Strength) 500 mg PO Q4H PRN PRN Reason: Fever Last Admin: 07/22/17 07:51 Dose: 500 mg Aspirin (Aspirin) 325 mg PO DAILY [facility] Last Admin: 07/22/17 09:15 Dose: 325 mg Atenolol (Tenormin) 50 mg PO BID [facility] Last Admin: 07/22/17 09:21 Dose: 50 mg Cholecalciferol (Vitamin D3) 400 units PO DAILY [facility] Last Admin: 07/22/17 09:16 Dose: 400 units Clopidogrel Bisulfate (Plavix) 75 mg PO DAILY [facility] Last Admin: 07/22/17 09:15 Dose: 75 mg Famotidine (Pepcid) 20 mg PO BID PRN PRN Reason: Heartburn Last Admin: 07/21/17 01:43 Dose: 20 mg Ferrous Sulfate (Ferrous Sulfate) 325 mg PO BIDMEALS [facility] Last Admin: 07/22/17 07:51 Dose: 325 mg Glyburide (Micronase) 5 mg PO 0730 [facility] Last Admin: 07/22/17 07:51 Dose: 5 mg Heparin Sodium (Porcine) (Heparin Sodium) 5,000 units SUBCUT Q8HR [facility] Last Admin: 07/22/17 06:03 Dose: 5,000 units Hydrochlorothiazide (Hydrochlorothiazide) 25 mg PO DAILY [facility] Last Admin: 07/22/17 09:15 Dose: 25 mg Metronidazole 500 mg/ Premix 100 mls @ 100 mls/hr IV Q8H [facility] Last Infusion: 07/22/17 10:49 Dose: Infused Meropenem 1 gm/ Sodium (Chloride) 100 mls @ 200 mls/hr IV Q12H [facility] Last Admin: 07/22/17 07:53 Dose: 200 mls/hr Ibuprofen (Motrin) 200 mg PO Q8H PRN PRN Reason: low back and knee pain Last Admin: 07/22/17 10:46 Dose: 200 mg Insulin Aspart (Novolog) 0 unit SUBCUT QIDACANDBED PRN; Protocol PRN Reason: Blood Glucose Last Admin: 07/21/17 17:22 Dose: 2 units Latanoprost (Xalatan 0.005% Ophth Soln) 0 ml EYEBOTH BEDTIME [facility] Last Admin: 07/21/17 20:33 Dose: 1 drop Methyl Salicylate (Icy Hot Cream) 1 gm TOP BID PRN PRN Reason: Other Last Admin: 07/21/17 14:53 Dose: 1 applic Novolog Mix 70/30 Prefilled Syringe Non-Form Med 0 each SUBCUT BID [facility] Last Admin: 07/22/17 09:18 Dose: 30 each Ondansetron HCl (Zofran) 4 mg IVPUSH Q6H PRN PRN Reason: Nausea/Vomiting Ramipril (Altace) 5 mg PO BID [facility] Last Admin: 07/22/17 09:16 Dose: 5 mg Sodium Chloride (Saline Flush) 10 ml FLUSH ASDIRECTED PRN PRN Reason: Keep Vein Open Last Admin: 07/22/17 09:23 Dose: 10 ml Discontinued Medications Acetaminophen (Tylenol) 650 mg PO NOW ONE Stop: 07/18/17 22:39 Last Admin: 07/18/17 22:59 Dose: 650 mg Glyburide (Micronase) 5 mg PO ACBREAKFAST [facility] Last Admin: 07/19/17 05:54 Dose: 5 mg Ceftriaxone Sodium 500 mg/ (Sodium Chloride) 50 mls @ 100 mls/hr IV ONETIME ONE Stop: 07/18/17 23:07 Last Admin: 07/18/17 23:01 Dose: 100 mls/hr Sodium Chloride (Normal Saline) 1,000 mls @ 125 mls/hr IV ASDIRECTED [facility] Last Admin: 07/19/17 05:57 Dose: 125 mls/hr Ceftriaxone Sodium 1 gm/ (Sodium Chloride) 50 mls @ 100 mls/hr IV Q24H [facility] Last Admin: 07/20/17 23:34 Dose: 100 mls/hr Sodium Chloride (Normal Saline) 1,000 mls @ 125 mls/hr IV ASDIRECTED [facility] Stop: 07/19/17 01:00 Sodium Chloride (Normal Saline) 1,000 mls @ 75 mls/hr IV ASDIRECTED [facility] Last Admin: 07/19/17 20:07 Dose: 75 mls/hr Insulin Aspart (Novolog Mix 70-30) 52 unit SUBCUT ACBREAKFAST [facility] Insulin Aspart (Novolog Mix 70-30) 52 unit SUBCUT 0730 [facility] Last Admin: 07/20/17 08:29 Dose: 52 units Insulin Aspart (Novolog) 0 unit SUBCUT QIDACANDBED ONE PRN Reason: Protocol Stop: 07/21/17 12:01 Insulin Human Isoph/Insulin Regular (Novolin 70-30) 30 unit SUBCUT BIDAC [facility] Last Admin: 07/20/17 17:18 Dose: 30 units Insulin Human Isoph/Insulin Regular (Novolin 70-30) 30 unit SUBCUT 0800,1700 [facility] Last Admin: 07/21/17 12:34 Dose: Not Given Non-Formulary Medication (Travoprost (Benzalkonium) [Travoprost 0.004% Eye Drop] ) 1 drop EYEBOTH BEDTIME [facility] Last Admin: 07/19/17 21:35 Dose: Not Given Insuln Asp Prot/Insulin Aspart [ Novolog Mix 70-30] 60 UniNon-Form Med 60 units SQ BEDTIME [facility] Ondansetron HCl (Zofran) 4 mg IV ONETIME ONE Stop: 07/18/17 22:39 Last Admin: 07/18/17 23:03 Dose: Not Given - Exam General: Reports: Alert, Oriented, Cooperative, No Acute Distress. Denies: Severe Distress, Sedated, Lethargic HEENT: Reports: Pupils Equal, Pupils Reactive, EOMI, Mucous Membr. Moist/[place] Neck: Reports: Supple, Trachea Midline, No JVD Lungs: Reports: Clear to Auscultation, Normal Respiratory Effort. Denies: Crackles, Rales Cardiovascular: Reports: Regular Rate, Regular Rhythm GI/Abdominal Exam: Normal Bowel Sounds, Soft, No Distention, Tender (Lower abdomen area), Other (Overall difficult to assess due to body habitus) (Female) Exam: Deferred Rectal (Female) Exam: Deferred Back Exam: Reports: Normal Inspection, Full Range of Motion. Denies: CVA Tenderness (L), CVA Tenderness (R) Extremities: Normal Inspection, Normal Range of Motion, Non-Tender, No Pedal Edema, Normal Capillary Refill Skin: Reports: Warm, Dry, Intact Neurological: Reports: No New Focal Deficit Psy/Mental Status: Reports: Alert, Normal Affect, Normal Mood *Q Meaningful Use (DIS) - VTE *Q VTE Criteria *Q: - Stroke *Q Stroke Criteria *Q: - AMI *Q AMI Criteria *Q:
[2017-07-22] MEDS ORDERED: 50% Dextrose in Water 50 ML Syringe IVPUSH ONE (13:04)
[2017-07-22 13:57] VITALS: BP 150/57
== END 2017-07-22 14:00 | DRG 872 ==
LOC: DL.ED 22:06 → DL.MS 07-19 00:15
PROVIDERS: ADMIT Hospitalist; ATTEND Hospitalist
DX: N12 Tubulo-interstitial nephritis, not specified as acute or chronic (principal); A41.9 Sepsis, unspecified organism; E78.00 Pure hypercholesterolemia, unspecified; N39.0 Urinary tract infection, site not specified; E11.9 Type 2 diabetes mellitus without complications; E61.1 Iron deficiency; Z91.040 Latex allergy status; Z88.8 Allergy status to other drugs, medicaments and biological substances; K57.32 Diverticulitis of large intestine without perforation or abscess without bleeding; B96.20 Unspecified Escherichia coli [E. coli] as the cause of diseases classified elsewhere; E11.8 Type 2 diabetes mellitus with unspecified complications; I10 Essential (primary) hypertension; I25.10 Atherosclerotic heart disease of native coronary artery without angina pectoris; Z79.899 Other long term (current) drug therapy; Z79.4 Long term (current) use of insulin; Z95.5 Presence of coronary angioplasty implant and graft
CPT/HCPCS: 36415; 80053; 83605; 85025; 86140; 87040 ×2; 87086; 96361; 96365; 99284; A9270; J0696; J7030; J7050 ×2; 74176; 80048; 80076; 81001; 82962; 87077; 87088; 87186; 93306; 97110-GO; 97110-GP; 97116-GP; 97162-GP; 97165-GO; 97530-GO; 99283; 99285; J1644; J1815; J1815-GY; J2185; J7060

== ENCOUNTER 2017-09-10 11:23 | Emergency (ER) | payer MEDICARE, OTHER ==
[2017-09-10 11:41] VITALS: BP 117/51
[2017-09-10] MEDS ORDERED: 50% Dextrose in Water 50 ML Syringe IVPUSH ONE (11:53)
--- NOTE | 2017-09-10 13:45 | EDM.PDOC ---
ED HPI GENERAL MEDICAL PROBLEM - General Chief Complaint: Diabetic Complaint Stated Complaint: SICK [id number] Time Seen by Provider: 09/10/17 12:00 Source of Information: Reports: Patient, RN, RN Notes Reviewed History Limitations: Reports: No Limitations - History of Present Illness INITIAL COMMENTS - FREE TEXT/NARRATIVE: Patient presented with left ear pain. She is dizzy and has clouded sensorium. Decreased blood sugar. She has positive chills. No fever, sore throat, chest pain or shortness of breath. At 1020 she took 52 units of 70/30. Quality: Reports: Ache Severity: Moderate Improves with: Reports: None Worsens with: Reports: None Associated Symptoms: Reports: No Other Symptoms - Related Data Allergies Allergy/AdvReac Type Severity Reaction Status Date / Time ciprofloxacin [From Cipro] Allergy Rash Verified 07/18/17 22:17 ciprofloxacin HCl Allergy Rash Verified 07/18/17 22:17 [From Cipro] latex Allergy Rash Verified 07/18/17 22:17 metformin HCl Allergy Other Verified 07/18/17 22:17 [From Glucophage] propoxyphene napsylate Allergy Rash Verified 07/18/17 22:17 [From Darvocet-N 100] sulfamethoxazole Allergy Rash Verified 07/18/17 22:17 [From Bactrim] trimethoprim [From Bactrim] Allergy Rash Verified 07/18/17 22:17 promethazine HCl AdvReac Weakness Verified 07/18/17 22:17 [From Phenergan] Home Meds: Home Meds Aspirin 1 tab PO DAILY 08/31/13 [History] Clopidogrel [Plavix] 1 tab PO DAILY 08/31/13 [History] glyBURIDE [Diabeta] 5 mg PO ACBREAKFAST 08/31/13 [History] Vitamin E 1 cap PO DAILY 08/13/14 [History] Ferrous Sulfate 1 tab PO BID 10/20/15 [History] Insuln Asp Prot/Insulin Aspart [NovoLOG Mix 70-30] 52 units SQ ACBREAKFAST 10/20 [History] Insuln Asp Prot/Insulin Aspart [NovoLOG Mix 70-30] 52 units SQ BEDTIME 10/20/15 [History] Ranitidine [Zantac] 1 tab PO BID PRN 10/20/15 [History] Atenolol 1 tab PO BID 04/18/16 [History] Nitroglycerin [Nitrostat] 1 tab SL ASDIRECTED PRN 01/12/16 [History] Acetaminophen 500 mg PO Q4H PRN 04/11/17 [History] Ramipril [Altace] 5 mg PO BID 04/11/17 [History] Hydrochlorothiazide 25 mg PO DAILY 07/18/17 [History] Latanoprost [Xalatan] 1 drop EYEBOTH BEDTIME 07/20/17 [History] Past Medical History HEENT History: Reports: Cataract, Glaucoma, Impaired Vision Other HEENT History: WEARS CORRECTIVE LENSES; FULL SET OF DENTURES; DERMATOCHALASIS; DETACHMENT PVD; DIABETIC RETINOPATHY-PROLIFERATIVE Cardiovascular History: Reports: CAD, High Cholesterol, Hypertension, Stents Respiratory History: Reports: None Gastrointestinal History: Reports: Chronic Constipation, GERD, Helicobacter Pylori, Hiatal Hernia Other Gastrointestinal History: BLACK STOOLS Genitourinary History: Reports: UTI, Recurrent Other Genitourinary History: 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 - Infectious Disease History Infectious Disease History: Reports: Chicken Pox, Measles, Mumps, Shingles - Past Surgical History HEENT Surgical History: Reports: Cataract Surgery Cardiovascular Surgical History: Reports: Coronary Artery Stent Respiratory Surgical History: Reports: None GI Surgical History: Reports: Cholecystectomy Female Surgical History: Reports: Breast Biopsy, Tubal Ligation Neurological Surgical History: Reports: None Oncologic Surgical History: Reports: Biopsy of Breast Social & Family History - Family History Family Medical History: Noncontributory - Tobacco Use Smoking Status *Q: Former Smoker Years of Tobacco use: 18 Packs/Tins Daily: 1 Used Tobacco, but Quit: Yes Month Tobacco Last Used: september Second Hand Smoke Exposure: No - Caffeine Use Caffeine Use: Reports: Coffee - Alcohol Use Days Per Week of Alcohol Use: 0 - Recreational Drug Use Recreational Drug Use: No - Living Situation & Occupation Living situation: Reports: , with Family Occupation: Retired ED ROS GENERAL - Review of Systems Review Of Systems: ROS reveals no pertinent complaints other than HPI. ED EXAM GENERAL NO PERIP PULSE - Physical Exam Exam: See Below Exam Limited By: No Limitations General Appearance: Alert, WD/WN, No Apparent Distress Eye Exam: Bilateral Eye: Normal Inspection Ears: Normal External Exam, Normal Canal, Hearing Grossly Normal, Normal TMs Nose: Normal Inspection, Normal Mucosa, No Blood Throat/Mouth: Normal Inspection, Normal Lips, Normal Teeth, Normal Gums, Normal Oropharynx, Normal Voice, No Airway Compromise Head: Atraumatic, Normocephalic Neck: Normal Inspection, Supple, Non-Tender, Full Range of Motion Respiratory/Chest: No Respiratory Distress, Lungs Clear, Normal Breath Sounds, No Accessory Muscle Use, Chest Non-Tender Cardiovascular: Normal Peripheral Pulses, Regular Rate, Rhythm, No Edema, No Gallop, No JVD, No Murmur, No Rub GI/Abdominal: Normal Bowel Sounds, Soft, Non-Tender, No Organomegaly, No Distention, No Abnormal Bruit, No Mass (Female) Exam: Deferred Rectal (Female) Exam: Deferred Back Exam: Normal Inspection, Full Range of Motion, NT Extremities: Normal Inspection, Normal Range of Motion, Non-Tender, Normal Capillary Refill, No Pedal Edema Neurological: Alert, Oriented, CN II-XII Intact, Normal Cognition, Normal Gait, Normal Reflexes, No Motor/Sensory Deficits Psychiatric: Normal Affect, Normal Mood Lymphatic: No Adenopathy Course - Vital Signs Last Recorded V/S: Last Vital Signs Temp 95.7 F 09/10/17 11:40 Pulse 52 L 09/10/17 11:40 Resp 16 09/10/17 11:40 BP 117/51 L 09/10/17 11:40 Pulse Ox 97 09/10/17 11:40 - Orders/Labs/Meds Labs: Laboratory Tests 09/10/17 09/10/17 09/10/17 Range/Units 11:52 12:03 12:03 WBC 8.7 (5.0-10.0) 10^3/uL RBC 4.11 L (4.2-5.4) 10^6/uL Hgb 12.1 (12.0-16.0) g/dL Hct 37.1 (37.0-47.0) % MCV 90.3 (80-100) fL MCH 29.4 (27.0-34.0) pg MCHC 32.6 L (33.0-35.0) g/dL Plt Count 193 (150-450) 10^3/uL Neut % (Auto) 66.6 (42.2-75.2) % Lymph % (Auto) 19.3 L (20.5-50.1) % [place] % (Auto) 9.6 H (2-8) % Eos % (Auto) 4.0 H (1.0-3.0) % Baso % (Auto) 0.5 (0.0-1.0) % Sodium 141 (135-145) mmol/L Potassium 3.6 (3.6-5.0) mmol/L Chloride 110 (101-111) mmol/L Carbon Dioxide 22.0 (21.0-31.0) mmol/L Anion Gap 12.6 BUN 23 H (7-18) mg/dL Creatinine 1.0 (0.6-1.3) mg/dL Est Cr Clr Drug Dosing 40.46 mL/min Estimated GFR (MDRD) 54 BUN/Creatinine Ratio 23.00 Glucose 40 L* (74-105) mg/dL POC Glucose 34 L* (83-110) mg/dl Calcium 8.8 (8.4-10.2) mg/dl Total Bilirubin 0.4 (0.2-1.0) mg/dL AST 19 (10-42) IU/L ALT 14 (10-60) IU/L Alkaline Phosphatase 76 (42-121) IU/L Total Protein 7.0 (6.7-8.2) g/dl Albumin 3.6 (3.2-5.5) g/dl Globulin 3.4 Albumin/Globulin Ratio 1.06 09/10/17 09/10/17 09/10/17 Range/Units 12:23 13:04 13:35 WBC (5.0-10.0) 10^3/uL RBC (4.2-5.4) 10^6/uL Hgb (12.0-16.0) g/dL Hct (37.0-47.0) % MCV (80-100) fL MCH (27.0-34.0) pg MCHC (33.0-35.0) g/dL Plt Count (150-450) 10^3/uL Neut % (Auto) (42.2-75.2) % Lymph % (Auto) (20.5-50.1) % [place] % (Auto) (2-8) % Eos % (Auto) (1.0-3.0) % Baso % (Auto) (0.0-1.0) % Sodium (135-145) mmol/L Potassium (3.6-5.0) mmol/L Chloride (101-111) mmol/L Carbon Dioxide (21.0-31.0) mmol/L Anion Gap BUN (7-18) mg/dL Creatinine (0.6-1.3) mg/dL Est Cr Clr Drug Dosing mL/min Estimated GFR (MDRD) BUN/Creatinine Ratio Glucose (74-105) mg/dL POC Glucose 136 H 86 68 L (83-110) mg/dl Calcium (8.4-10.2) mg/dl Total Bilirubin (0.2-1.0) mg/dL AST (10-42) IU/L ALT (10-60) IU/L Alkaline Phosphatase (42-121) IU/L Total Protein (6.7-8.2) g/dl Albumin (3.2-5.5) g/dl Globulin Albumin/Globulin Ratio Meds: Medications Discontinued Medications Generic Name Dose Route Start Last Admin Trade Name Freq PRN Reason Stop Dose Admin Dextrose/Water 50 ml 09/10/17 11:53 09/10/17 12:06 Dextrose 50% In Water IVPUSH 09/10/17 11:54 50 ml ONETIME ONE Administration Departure - Departure Time of Disposition: 13:43 Disposition: Home, Self-Care 01 Condition: Fair Clinical Impression: Hypoglycemia - Discharge Information Instructions: Type 2 Diabetes Mellitus, Adult, [id number], Hypoglycemia, Easy -to-Read Referrals: PCP,None [Primary Care Provider] - Forms: ED Department Discharge Additional Instructions: Follow up on Tuesday morning at your primary care facility. Monitor blood sugar hourly today. Have a snack if low. Keep blood sugar between 60-120. Return to the ER if having trouble regulating it.
== END 2017-09-10 13:55 | disposition home or self-care (01) ==
LOC: DL.ED 11:23
DX: E11.649 Type 2 diabetes mellitus with hypoglycemia without coma (principal); E78.00 Pure hypercholesterolemia, unspecified; I10 Essential (primary) hypertension; K21.9 Gastro-esophageal reflux disease without esophagitis; I25.10 Atherosclerotic heart disease of native coronary artery without angina pectoris; E11.319 Type 2 diabetes mellitus with unspecified diabetic retinopathy without macular edema; Z79.4 Long term (current) use of insulin; Z79.899 Other long term (current) drug therapy; Z87.440 Personal history of urinary (tract) infections; Z79.01 Long term (current) use of anticoagulants; Z95.5 Presence of coronary angioplasty implant and graft; Z88.1 Allergy status to other antibiotic agents; Z91.040 Latex allergy status; Z79.82 Long term (current) use of aspirin; Z87.891 Personal history of nicotine dependence
CPT/HCPCS: 36415; 80053; 82962; 85025; 96374; 99284; 99285; J7060

== ENCOUNTER 2018-12-07 13:24 | Emergency (ER) | payer MEDICARE, OTHER ==
[2018-12-07] MEDS ORDERED: GI Cocktail Oral Solution 30 ML PO ONE (13:54)
[2018-12-07 13:59] VITALS: BP 149/58
[2018-12-07 14:19] LABS: ANION GAP 11.6; CHLORIDE,CL 105 mmol/L (101-111); SODIUM,NA 137 mmol/L (135-145)
[2018-12-07] MEDS ORDERED: Pantoprazole 40 MG Tab.CR PO ONE (17:16)
--- NOTE | 2018-12-07 17:18 | EDM.PDOC ---
ED HPI GENERAL MEDICAL PROBLEM - General Chief Complaint: Chest Pain Stated Complaint: CHEST PAIN [id number] Time Seen by Provider: 12/07/18 13:40 Source of Information: Reports: Patient History Limitations: Reports: No Limitations - History of Present Illness INITIAL COMMENTS - FREE TEXT/NARRATIVE: gabbie comes emergency department today with complaints of left anterior chest pain that started at noon. For breakfast she raisin ROKT bar and ever since then which was before noon she has had left anterior chest pain. The pain gets worse with deep breath cough movement and palpation. She has had this pain many times beforeand sometimes it's heartburn and sometimes it is a heart attack. She has no shortness of breath weakness dizziness lightheadedness. No nausea no vomiting. No diaphoresis.No black or tarry stools. No abdominal pain. She does take her ranitidine sometimes.she did take a full tablet of mg at home prior to coming to the emergency department. Left Chest Pain Score (Numeric/FACES): 6 - Related Data Allergies Allergy/AdvReac Type Severity Reaction Status Date / Time ciprofloxacin [From Cipro] Allergy Rash Verified 09/22/18 21:06 ciprofloxacin HCl Allergy Rash Verified 09/22/18 21:06 [From Cipro] latex Allergy Rash Verified 09/22/18 21:06 metformin HCl Allergy Other Verified 09/22/18 21:06 [From Glucophage] propoxyphene napsylate Allergy Rash Verified 09/22/18 21:06 [From Darvocet-N 100] sulfamethoxazole Allergy Rash Verified 09/22/18 21:06 [From Bactrim] trimethoprim [From Bactrim] Allergy Rash Verified 09/22/18 21:06 promethazine HCl AdvReac Weakness Verified 09/22/18 21:06 [From Phenergan] Home Meds: Home Meds Aspirin 1 tab PO DAILY 08/31/13 [History] Clopidogrel [Plavix] 1 tab PO DAILY 08/31/13 [History] glyBURIDE [Diabeta] 5 mg PO ACBREAKFAST 08/31/13 [History] Vitamin E 1 cap PO DAILY 08/13/14 [History] Ferrous Sulfate 1 tab PO BID 10/20/15 [History] Insuln Asp Prot/Insulin Aspart [NovoLOG Mix 70-30] 52 units SQ ACBREAKFAST 10/20 [History] Insuln Asp Prot/Insulin Aspart [NovoLOG Mix 70-30] 52 units SQ BEDTIME 10/20/15 [History] Ranitidine [Zantac] 1 tab PO BID PRN 10/20/15 [History] Atenolol 1 tab PO BID 01/12/16 [History] Nitroglycerin [Nitrostat] 1 tab SL ASDIRECTED PRN 01/12/16 [History] Acetaminophen 500 mg PO Q4H PRN 04/11/17 [History] Ramipril [Altace] 5 mg PO BID 04/11/17 [History] hydroCHLOROthiazide [Hydrochlorothiazide] 25 mg PO DAILY 07/18/17 [History] Latanoprost [Xalatan] 1 drop EYEBOTH BEDTIME 07/20/17 [History] Past Medical History HEENT History: Reports: Cataract, Glaucoma, Impaired Vision Other HEENT History: WEARS CORRECTIVE LENSES; FULL SET OF DENTURES; DERMATOCHALASIS; DETACHMENT PVD; DIABETIC RETINOPATHY-PROLIFERATIVE Cardiovascular History: Reports: CAD, High Cholesterol, Hypertension, Stents Respiratory History: Reports: None Gastrointestinal History: Reports: Chronic Constipation, GERD, Helicobacter Pylori, Hiatal Hernia Other Gastrointestinal History: BLACK STOOLS Genitourinary History: Reports: UTI, Recurrent Other Genitourinary History: 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 - Infectious Disease History Infectious Disease History: Reports: Chicken Pox, Measles, Mumps, Shingles - Past Surgical History HEENT Surgical History: Reports: Cataract Surgery Cardiovascular Surgical History: Reports: Coronary Artery Stent Respiratory Surgical History: Reports: None GI Surgical History: Reports: Cholecystectomy Female Surgical History: Reports: Breast Biopsy, Tubal Ligation Neurological Surgical History: Reports: None Oncologic Surgical History: Reports: Biopsy of Breast Social & Family History - Family History Family Medical History: Noncontributory - Caffeine Use Caffeine Use: Reports: Coffee - Living Situation & Occupation Living situation: Reports: , with Family Occupation: Retired ED ROS GENERAL - Review of Systems Review Of Systems: ROS reveals no pertinent complaints other than HPI. ED EXAM, GENERAL - Physical Exam Exam: See Below Exam Limited By: No Limitations General Appearance: Alert, WD/WN, No Apparent Distress Eye Exam: Bilateral Eye: EOMI, Normal Inspection, PERRL Ears: Normal External Exam, Normal TMs Nose: Normal Inspection, Normal Mucosa Throat/Mouth: Normal Inspection, Normal Lips, Normal Oropharynx Head: Atraumatic, Normocephalic Neck: Normal Inspection, Supple Respiratory/Chest: No Respiratory Distress, Lungs Clear, Normal Breath Sounds, No Accessory Muscle Use, Chest Non-Tender, Other (she does have tenderness over the left mid anterior chest wall. With even the lightest palpation she winces to pain. There is no bruising swelling ecchymosis bony deformity.) Cardiovascular: Normal Peripheral Pulses, Regular Rate, Rhythm GI/Abdominal: Normal Bowel Sounds, Soft Back Exam: Normal Inspection Extremities: Normal Inspection, Normal Range of Motion, Non-Tender, No Pedal Edema, Normal Capillary Refill Neurological: Alert, Oriented, Normal Cognition, No Motor/Sensory Deficits Psychiatric: Normal Affect, Normal Mood Skin Exam: Warm, Dry, Intact, Normal Color, No Rash Lymphatic: No Adenopathy EKG INTERPRETATION EKG Date: 12/07/18 Time: 13:40 Rhythm: NSR Rate (Beats/Min): 57 [place]: Normal P-Wave: Present QRS: Normal ST-T: Normal QT: Normal Comparison: No Change Course - Vital Signs Last Recorded V/S: Last Vital Signs Temp 37.1 C 12/07/18 13:27 Pulse 57 L 12/07/18 13:27 Resp 14 12/07/18 13:27 BP 149/58 H 12/07/18 13:27 Pulse Ox 98 12/07/18 13:27 - Orders/Labs/Meds Orders: Active Orders 24 hr Category Date Time Status EKG 12 Lead [EKG Documentation Completion] [RC] STAT Care 12/07/18 14:00 Active Labs: Laboratory Tests 12/07/18 12/07/18 12/07/18 Range/Units 13:52 13:52 16:31 WBC 8.9 (5.0-10.0) 10^3/uL RBC 4.45 (4.2-5.4) 10^6/uL Hgb 13.0 (12.0-16.0) g/dL Hct 38.5 (37.0-47.0) % MCV 86.5 (80-100) fL MCH 29.2 (27.0-34.0) pg MCHC 33.8 (33.0-35.0) g/dL Plt Count 183 (150-450) 10^3/uL Neut % (Auto) 65.7 (42.2-75.2) % Lymph % (Auto) 22.1 (20.5-50.1) % [place] % (Auto) 8.7 H (2-8) % Eos % (Auto) 3.2 H (1.0-3.0) % Baso % (Auto) 0.3 (0.0-1.0) % Sodium 137 (135-145) mmol/L Potassium 3.6 (3.6-5.0) mmol/L Chloride 105 (101-111) mmol/L Carbon Dioxide 24.0 (21.0-31.0) mmol/L Anion Gap 11.6 BUN 23 H (7-18) mg/dL Creatinine 1.0 (0.6-1.3) mg/dL Est Cr Clr Drug Dosing 38.97 mL/min Estimated GFR (MDRD) 54 BUN/Creatinine Ratio 23.00 Glucose 190 H (74-105) mg/dL Calcium 8.4 (8.4-10.2) mg/dl Total Bilirubin 0.6 (0.2-1.0) mg/dL AST 19 (10-42) IU/L ALT 13 (10-60) IU/L Alkaline Phosphatase 78 (42-121) IU/L Troponin I < 0.02 < 0.02 (0.00-0.02) ng/ml Total Protein 6.4 L (6.7-8.2) g/dl Albumin 3.4 (3.2-5.5) g/dl Globulin 3.0 Albumin/Globulin Ratio 1.13 Meds: Medications Discontinued Medications Generic Name Dose Route Start Last Admin Trade Name Freq PRN Reason Stop Dose Admin Al Hydroxide/Mg Hydroxide 30 ml 12/07/18 13:54 12/07/18 14:03 Gi Cocktail PO 12/07/18 13:55 30 ml ONETIME ONE Administration Pantoprazole Sodium 40 mg 12/07/18 17:16 03/14/19 17:39 Protonix PO 12/07/18 17:17 40 mg ONETIME ONE Administration - Re-Assessments/Exams Free Text/Narrative Re-Assessment/Exam: 12/07/18 19:53 patient was given a GI cocktail with complete resolution of the chest pain subjectively as well as tenderness. Her initial troponin was negative. Her repeat troponin at 4 hours from the onset of the chest pain which she sees started at noon but really started this morning when she thinks about it. This repeat troponin was negative as well. She did not have any recurrence of the chest pain while in the emergency department.I will switch her from ranitidine to Protonix for her heartburn symptoms.Start her on Carafate as well. Cannot use omeprazole as she is on Plavix. We'll discharge her at this time and she is comfortable with that plan. Departure - Departure Time of Disposition: : Disposition: Home, Self-Care 01 Clinical Impression: Non-cardiac chest pain GERD (gastroesophageal reflux disease) Qualifiers: Esophagitis presence: esophagitis presence not specified Qualified Code(s): K21.9 - Gastro-esophageal reflux disease without esophagitis - Discharge Information Instructions: Gastroesophageal Reflux Disease, Adult, [id number] Referrals: PCP,None [Primary Care Provider] - Forms: ED Department Discharge Additional Instructions: Maalox or Mylanta for acute episodes of the heartburn sensation in your chest. Stop the ranitidine. Stop the Protonix, 1 tablet daily for the next 28 days. RX given to the patient. Carafate. 1 tablet 1/2 hr before meals and at bedtime. RX given to the patient. Return to the ED if new or worsening symptoms. Follow up with primary care provider in the next 4-6 days if not improving sooner if worse. - My Orders Last 24 Hours: My Active Orders 12/07/18 14:00 EKG 12 Lead [EKG Documentation Completion] [RC] STAT - Assessment/Plan Last 24 Hours: My Active Orders 12/07/18 14:00 EKG 12 Lead [EKG Documentation Completion] [RC] STAT Assessment:: none cardiac chest pain. GERD Plan: Maalox or Mylanta for acute episodes of the heartburn sensation in your chest. Stop the ranitidine. Stop the Protonix, 1 tablet daily for the next 28 days. RX given to the patient. Carafate. 1 tablet 1/2 hr before meals and at bedtime. RX given to the patient. Return to the ED if new or worsening symptoms. Follow up with primary care provider in the next 4-6 days if not improving sooner if worse.
== END 2018-12-07 17:55 | disposition home or self-care (01) ==
LOC: DL.ED 13:24
DX: K21.9 Gastro-esophageal reflux disease without esophagitis (principal); R07.89 Other chest pain; I25.10 Atherosclerotic heart disease of native coronary artery without angina pectoris; E78.00 Pure hypercholesterolemia, unspecified; I10 Essential (primary) hypertension; E11.9 Type 2 diabetes mellitus without complications; Z88.1 Allergy status to other antibiotic agents; Z91.040 Latex allergy status; Z88.8 Allergy status to other drugs, medicaments and biological substances; Z79.82 Long term (current) use of aspirin; Z79.01 Long term (current) use of anticoagulants; Z79.84 Long term (current) use of oral hypoglycemic drugs; Z79.899 Other long term (current) drug therapy
CPT/HCPCS: 36415; 80053; 84484; 85025; 93005; 99284-25; A9270-GY

== ENCOUNTER 2019-09-01 14:01 | Emergency (ER) | payer MEDICARE, OTHER ==
[2019-09-01] MEDS ORDERED: Benzonatate 100 MG Cap PO ONE ×2 (14:02→15:51)
[2019-09-01] MEDS ORDERED: Sodium Chloride 0.9% 10 ML Syringe FLUSH PRN (15:34)
[2019-09-01] MEDS ORDERED: Sodium Chloride 0.9% 1,000 ML IV ONE (15:51)
[2019-09-01] MEDS ORDERED: Atropine/Diphenoxylate 0.025-2.5 MG Tab PO ONE (15:53)
[2019-09-01 15:55] LABS: ANION GAP 13.3
--- NOTE | 2019-09-01 17:56 | EDM.PDOC ---
Scribed by Therese Ring 09/01/19 [id number] for Santos Martinez MD ED HPI GENERAL MEDICAL PROBLEM - General Chief Complaint: Fever Stated Complaint: ILL PAST 6 DAY, FEVER ETC. Time Seen by Provider: 09/01/19 14:46 Source of Information: Reports: Patient, Family, RN, RN Notes Reviewed History Limitations: Reports: No Limitations - History of Present Illness INITIAL COMMENTS - FREE TEXT/NARRATIVE: Patient presents to ER via POV with cough, fever, body aches that began 6 days ago. Patient's daughter states temperature of 103 this morning. Patient states she has been feeling worse over the course of the last few days. Patient has yellow with blood tinged sputum. Patient has history of recurring UTI and would like UA as well. Patient has been taking Mucinex. Patient had diarrhea yesterday. 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 Trunk Pain Score (Numeric/FACES): 10 - Related Data Allergies Allergy/AdvReac Type Severity Reaction Status Date / Time ciprofloxacin [From Cipro] Allergy Rash Verified 09/01/19 14:48 ciprofloxacin HCl Allergy Rash Verified 09/01/19 14:48 [From Cipro] latex Allergy Rash Verified 09/01/19 14:48 metformin HCl Allergy Other Verified 09/01/19 14:48 [From Glucophage] propoxyphene napsylate Allergy Rash Verified 09/01/19 14:48 [From Darvocet-N 100] sulfamethoxazole Allergy Rash Verified 09/01/19 14:48 [From Bactrim] trimethoprim [From Bactrim] Allergy Rash Verified 09/01/19 14:48 promethazine HCl AdvReac Weakness Verified 09/01/19 14:48 [From Phenergan] Home Meds: Home Meds Aspirin 1 tab PO DAILY 08/31/13 [History] glyBURIDE [Diabeta] 5 mg PO ACBREAKFAST 08/31/13 [History] Vitamin E 1 cap PO DAILY 08/13/14 [History] Insuln Asp Prot/Insulin Aspart [NovoLOG Mix 70-30] 52 units SQ ACBREAKFAST 10/20 [History] Insuln Asp Prot/Insulin Aspart [NovoLOG Mix 70-30] 52 units SQ BEDTIME 10/20/15 [History] Atenolol 1 tab PO BID 01/12/16 [History] Nitroglycerin [Nitrostat] 1 tab SL ASDIRECTED PRN 01/12/16 [History] Acetaminophen 500 mg PO Q4H PRN 04/11/17 [History] Ramipril [Altace] 5 mg PO BID 04/11/17 [History] hydroCHLOROthiazide [Hydrochlorothiazide] 25 mg PO DAILY 07/18/17 [History] Latanoprost [Xalatan] 1 drop EYEBOTH BEDTIME 07/20/17 [History] Past Medical History HEENT History: Reports: Cataract, Glaucoma, Impaired Vision Other HEENT History: WEARS CORRECTIVE LENSES; FULL SET OF DENTURES; DERMATOCHALASIS; DETACHMENT PVD; DIABETIC RETINOPATHY-PROLIFERATIVE Cardiovascular History: Reports: CAD, High Cholesterol, Hypertension, Stents Respiratory History: Reports: None Gastrointestinal History: Reports: Chronic Constipation, GERD, Helicobacter Pylori, Hiatal Hernia Other Gastrointestinal History: BLACK STOOLS Genitourinary History: Reports: UTI, Recurrent Other Genitourinary History: FREQUENCY/URGENCY [place] History: Reports: Musculoskeletal History: Reports: RA Neurological History: Reports: None Psychiatric History: Reports: None Endocrine/Metabolic History: Reports: Diabetes, Type II, Obesity/BMI 30+ Hematologic History: Reports: Iron Deficiency Immunologic History: Reports: None Oncologic (Cancer) History: Reports: None Dermatologic History: Reports: Eczema, Psoriasis Other Dermatologic History: use to have but gone now. - Infectious Disease History Infectious Disease History: Reports: Chicken Pox, Measles, Mumps, Shingles - Past Surgical History HEENT Surgical History: Reports: Cataract Surgery Cardiovascular Surgical History: Reports: Coronary Artery Stent Respiratory Surgical History: Reports: None GI Surgical History: Reports: Cholecystectomy Female Surgical History: Reports: Breast Biopsy, Tubal Ligation Neurological Surgical History: Reports: None Oncologic Surgical History: Reports: Biopsy of Breast Social & Family History - Family History Family Medical History: Noncontributory - Caffeine Use Caffeine Use: Reports: Coffee - Living Situation & Occupation Living situation: Reports: , with Family Occupation: Retired ED ROS GENERAL - Review of Systems Review Of Systems: Comprehensive ROS is negative, except as noted in HPI. ED EXAM, GENERAL - Physical Exam Exam: See Below Exam Limited By: No Limitations General Appearance: Alert, WD/WN, No Apparent Distress, Obese Eye Exam: Bilateral Eye: Normal Inspection Nose: Normal Inspection, Normal Mucosa, No Blood Throat/Mouth: Normal Inspection, Normal Lips, Normal Teeth, Normal Gums, Normal Oropharynx, Normal Voice, No Airway Compromise Head: Atraumatic, Normocephalic Neck: Normal Inspection, Supple, Non-Tender, Full Range of Motion. No: Lymphadenopathy (L), Lymphadenopathy (R) Respiratory/Chest: No Respiratory Distress, Lungs Clear, Normal Breath Sounds, No Accessory Muscle Use, Chest Non-Tender, Crackles, Other (Cough). No: Rales, Rhonchi, Wheezing Cardiovascular: Regular Rate, Rhythm, No Edema GI/Abdominal: Normal Bowel Sounds, Soft, Non-Tender, No Organomegaly, No Distention, No Abnormal Bruit, No Mass Back Exam: Normal Inspection. No: CVA Tenderness (L), CVA Tenderness (R) Extremities: Normal Inspection, Normal Range of Motion, Non-Tender, Normal Capillary Refill, No Pedal Edema Neurological: Alert, Oriented, CN II-XII Intact, Normal Cognition, No Motor/ Sensory Deficits Psychiatric: Normal Mood Skin Exam: Warm, Dry, Intact, Normal Color, No Rash Course - Vital Signs Last Recorded V/S: Last Vital Signs Temp 99.1 F 09/01/19 14:40 Pulse 76 09/01/19 14:40 Resp 18 09/01/19 14:40 BP 143/66 H 09/01/19 14:40 Pulse Ox 97 09/01/19 14:40 - Orders/Labs/Meds Orders: Active Orders 24 hr Category Date Time Status Blood Glucose Check, Bedside [RC] ONETIME Care 09/01/19 14:42 Active Peripheral IV Care [RC] . DIRECTED Care 09/01/19 15:34 Active Chest 1V Frontal [CR] Stat Exams 09/01/19 15:33 Taken CBC WITH AUTO DIFF [HEME] Stat Lab 09/01/19 15:25 Results CULTURE BLOOD [BC] Stat Lab 09/01/19 15:25 Received CULTURE BLOOD [BC] Stat Lab 09/01/19 15:55 Received CULTURE STREP A CONFIRMATION [RM] Stat Lab 09/01/19 15:40 Results CULTURE URINE [RM] Stat Lab 09/01/19 16:10 Received MANUAL DIFFERENTIAL QA/NC [HEME] Stat Lab 09/01/19 15:25 Results STREP SCRN A RAPID W CULT CONF [RM] Stat Lab 09/01/19 15:40 Results Sodium Chloride 0.9% [Saline Flush] Med 09/01/19 15:34 Active 10 ml FLUSH ASDIRECTED PRN cefTRIAXone [Rocephin] 2,000 mg Med 09/01/19 17:44 Active Sodium Chloride 0.9% [Normal Saline] 100 ml IV ONETIME Blood Culture x2 Reflex Set [OM.PC] Stat Oth 09/01/19 15:33 Ordered Peripheral IV Insertion Adult [OM.PC] Stat Oth 09/01/19 15:33 Ordered Medication Orders Ceftriaxone Sodium 2,000 mg/ (Sodium Chloride) 100 mls @ 200 mls/hr IV ONETIME ONE Stop: 09/01/19 18:13 Sodium Chloride (Saline Flush) 10 ml FLUSH ASDIRECTED PRN PRN Reason: Keep Vein Open Labs: Laboratory Tests 09/01/19 09/01/19 09/01/19 Range/Units 14:40 15:25 15:25 WBC 11.1 H (5.0-10.0) 10^3/uL RBC 3.94 L (4.2-5.4) 10^6/uL Hgb 11.7 L D (12.0-16.0) g/dL Hct 35.0 L (37.0-47.0) % MCV 88.8 (80-100) fL MCH 29.7 (27.0-34.0) pg MCHC 33.4 (33.0-35.0) g/dL Plt Count 164 (150-450) 10^3/uL Neut % (Auto) 74.0 (42.2-75.2) % Lymph % (Auto) 13.1 L (20.5-50.1) % [place] % (Auto) 10.9 H (2-8) % Eos % (Auto) 1.7 (1.0-3.0) % Baso % (Auto) 0.3 (0.0-1.0) % Add Manual Diff Yes Sodium 139 (135-145) mmol/L Potassium 3.3 L (3.6-5.0) mmol/L Chloride 105 (101-111) mmol/L Carbon Dioxide 24.0 (21.0-31.0) mmol/L Anion Gap 13.3 BUN 34 H (7-18) mg/dL Creatinine 1.2 (0.6-1.3) mg/dL Est Cr Clr Drug Dosing 31.96 mL/min Estimated GFR (MDRD) 43 BUN/Creatinine Ratio 28.33 Glucose 152 H (74-105) mg/dL POC Glucose 150 H (83-110) mg/dl Lactic Acid (0.5-2.2) mmol/L Calcium 8.3 L (8.4-10.2) mg/dl Total Bilirubin 0.9 (0.2-1.0) mg/dL AST 15 (10-42) IU/L ALT 14 (10-60) IU/L Alkaline Phosphatase 68 (42-121) IU/L Total Protein 6.9 (6.7-8.2) g/dl Albumin 3.4 (3.2-5.5) g/dl Globulin 3.5 Albumin/Globulin Ratio 0.97 Urine Color (YELLOW) Urine Appearance (CLEAR) Urine pH (5.0-9.0) Ur Specific [place] (1.005-1.030) Urine Protein (NEGATIVE) Urine Glucose (UA) (NEGATIVE) Urine Ketones (NEGATIVE) Urine Occult Blood (NEGATIVE) Urine Nitrite (NEGATIVE) Urine Bilirubin (NEGATIVE) Urine Urobilinogen (0.2-1.0) mg/dL Ur Leukocyte Esterase (NEGATIVE) Urine RBC /HPF Urine WBC (0-5/HPF) /HPF Ur Epithelial Cells (NOT SEEN) /HPF Amorphous Sediment (NOT SEEN) /HPF Urine Bacteria (0-FEW/HPF) /HPF Urine Mucus (NOT SEEN) /LPF 09/01/19 09/01/19 Range/Units 15:25 16:10 WBC (5.0-10.0) 10^3/uL RBC (4.2-5.4) 10^6/uL Hgb (12.0-16.0) g/dL Hct (37.0-47.0) % MCV (80-100) fL MCH (27.0-34.0) pg MCHC (33.0-35.0) g/dL Plt Count (150-450) 10^3/uL Neut % (Auto) (42.2-75.2) % Lymph % (Auto) (20.5-50.1) % [place] % (Auto) (2-8) % Eos % (Auto) (1.0-3.0) % Baso % (Auto) (0.0-1.0) % Add Manual Diff Sodium (135-145) mmol/L Potassium (3.6-5.0) mmol/L Chloride (101-111) mmol/L Carbon Dioxide (21.0-31.0) mmol/L Anion Gap BUN (7-18) mg/dL Creatinine (0.6-1.3) mg/dL Est Cr Clr Drug Dosing mL/min Estimated GFR (MDRD) BUN/Creatinine Ratio Glucose (74-105) mg/dL POC Glucose (83-110) mg/dl Lactic Acid 0.9 (0.5-2.2) mmol/L Calcium (8.4-10.2) mg/dl Total Bilirubin (0.2-1.0) mg/dL AST (10-42) IU/L ALT (10-60) IU/L Alkaline Phosphatase (42-121) IU/L Total Protein (6.7-8.2) g/dl Albumin (3.2-5.5) g/dl Globulin Albumin/Globulin Ratio Urine Color Yellow (YELLOW) Urine Appearance Slightly cloudy (CLEAR) Urine pH 5.5 (5.0-9.0) Ur Specific [place] 1.020 (1.005-1.030) Urine Protein 100 H (NEGATIVE) Urine Glucose (UA) Negative (NEGATIVE) Urine Ketones Negative (NEGATIVE) Urine Occult Blood Trace-intact H (NEGATIVE) Urine Nitrite Positive H (NEGATIVE) Urine Bilirubin Negative (NEGATIVE) Urine Urobilinogen 1.0 (0.2-1.0) mg/dL Ur Leukocyte Esterase Negative (NEGATIVE) Urine RBC 0-5 /HPF Urine WBC 0-5 (0-5/HPF) /HPF Ur Epithelial Cells Moderate H (NOT SEEN) /HPF Amorphous Sediment Few (NOT SEEN) /HPF Urine Bacteria Many H (0-FEW/HPF) /HPF Urine Mucus Few H (NOT SEEN) /LPF Rapid strep: Negative. Influenza A and B: Negative. Meds: Medications Generic Name Dose Route Start Last Admin Trade Name Freq PRN Reason Stop Dose Admin Ceftriaxone Sodium 2,000 mg/ 100 mls @ 200 mls/hr 09/01/19 17:44 Sodium Chloride IV 09/01/19 18:13 ONETIME ONE Sodium Chloride 10 ml 09/01/19 15:34 Saline Flush FLUSH ASDIRECTED PRN Keep Vein Open Discontinued Medications Generic Name Dose Route Start Last Admin Trade Name Ana PRN Reason Stop Dose Admin Benzonatate 200 mg 09/01/19 15:51 09/01/19 16:23 Tessalon Perles PO 09/01/19 15:52 200 mg ONETIME ONE Administration Diphenoxylate HCl/Atropine 1 tab 09/01/19 15:53 09/01/19 16:23 Lomotil 0.025-2.5 Mg PO 09/01/19 15:54 1 tab ONETIME ONE Administration Sodium Chloride 1,000 mls @ 999 mls/hr 09/01/19 15:51 09/01/19 16:23 Normal Saline IV 09/01/19 16:51 999 mls/hr .BOLUS ONE Administration - Radiology Interpretation Free Text/Narrative:: [facility] - [facility] Final Radiology Report Call: [phone] assistance Online chat: [email or web address] Restaurant Name: CALOS CARTER Age: 78Years F Date: 09/01/2019 SSN: -- : [id number] Study: XR CHEST 1 VIEW FRONTAL Requesting Physician: SANTOS MARTINEZ Images: 1 Addl Studies: Provided Clinical History: Contrast: Contrast Medium: Contrast Amount: Contrast Method: CONFIDENTIALITY STATEMENT This report is intended only for use by the referring physician, and only in accordance with law. If you received this in error, call [phone]. Page 1 of 1 PROCEDURE INFORMATION: Exam: XR Chest, 1 View Exam date and time: 09/01/2019 3:38 PM Age: 78 years old Clinical history: Fever TECHNIQUE: Imaging protocol: XR of the chest Views: 1 view. COMPARISON: CR Chest 1V Frontal 04/27/2019 11:47 AM FINDINGS: Lungs: The lungs are normal. Pleural space: There are no pleural effusions present. Heart/Mediastinum: The heart is not enlarged. The pulmonary arteries are not enlarged. Bones/joints: Marginal osteophytes are noted at multiple levels in the spine. IMPRESSION: No acute abnormality. Thank you for allowing us to participate in the care of your patient. Dictated and Authenticated by: Michel Healy MD 09/01/2019 4:13 PM Central Time ([place] & [place]) Departure - Departure Time of Disposition: 17:53 Disposition: Home, Self-Care 01 Condition: Fair Clinical Impression: Viral URI with cough Urinary tract infection Qualifiers: Urinary tract infection type: acute pyelonephritis Qualified Code(s): N10 - Acute pyelonephritis - Discharge Information *PRESCRIPTION DRUG MONITORING PROGRAM REVIEWED*: No *COPY OF PRESCRIPTION DRUG MONITORING REPORT IN PATIENT MEL: No Instructions: Viral Respiratory Infection, Urinary Tract Infection, Adult, Easy -to-Read Forms: ED Department Discharge Additional Instructions: Rx: Cephalexin 500mg Rx: Tessalon Perles 200mg Use over the counter Imodium AD as needed for diarrhea. Follow up in clinic in 3 to 4 days for recheck. Return to ER if worse at any time. - My Orders Last 24 Hours: My Active Orders 09/01/19 14:42 Blood Glucose Check, Bedside [RC] ONETIME 09/01/19 15:25 CBC WITH AUTO DIFF [HEME] Stat CULTURE BLOOD [BC] Stat MANUAL DIFFERENTIAL QA/NC [HEME] Stat 09/01/19 15:33 Chest 1V Frontal [CR] Stat Blood Culture x2 Reflex Set [OM.PC] Stat Peripheral IV Insertion Adult [OM.PC] Stat 09/01/19 15:34 Peripheral IV Care [RC] . DIRECTED Sodium Chloride 0.9% [Saline Flush] 10 ml FLUSH ASDIRECTED PRN 09/01/19 15:40 CULTURE STREP A CONFIRMATION [RM] Stat STREP SCRN A RAPID W CULT CONF [RM] Stat 09/01/19 15:55 CULTURE BLOOD [BC] Stat 09/01/19 16:10 CULTURE URINE [RM] Stat 09/01/19 17:44 cefTRIAXone [Rocephin] 2,000 mg Sodium Chloride 0.9% [Normal Saline] 100 ml IV ONETIME - Assessment/Plan Last 24 Hours: My Active Orders 09/01/19 14:42 Blood Glucose Check, Bedside [RC] ONETIME 09/01/19 15:25 CBC WITH AUTO DIFF [HEME] Stat CULTURE BLOOD [BC] Stat MANUAL DIFFERENTIAL QA/NC [HEME] Stat 09/01/19 15:33 Chest 1V Frontal [CR] Stat Blood Culture x2 Reflex Set [OM.PC] Stat Peripheral IV Insertion Adult [OM.PC] Stat 09/01/19 15:34 Peripheral IV Care [RC] . DIRECTED Sodium Chloride 0.9% [Saline Flush] 10 ml FLUSH ASDIRECTED PRN 09/01/19 15:40 CULTURE STREP A CONFIRMATION [RM] Stat STREP SCRN A RAPID W CULT CONF [RM] Stat 09/01/19 15:55 CULTURE BLOOD [BC] Stat 09/01/19 16:10 CULTURE URINE [RM] Stat 09/01/19 17:44 cefTRIAXone [Rocephin] 2,000 mg Sodium Chloride 0.9% [Normal Saline] 100 ml IV ONETIME I have read and agree with the documentation that has been completed regarding this visit. By signing this record, I attest that the documentation was completed in my physical presence and is an accurate record of the encounter.
[2019-09-01] MEDS ORDERED: Codeine/Promethazine 10-6.25 MG/5 ML Syrup 5 ML UD Cup ONE (18:35)
[2019-09-01] MEDS ORDERED: Benzonatate 100 MG Cap ONE (18:48)
[2019-09-01 19:01] VITALS: BP 148/71; PULSE 94
== END 2019-09-01 19:00 | disposition home or self-care (01) ==
LOC: DL.ED 14:01
DX: J06.9 Acute upper respiratory infection, unspecified (principal); N10 Acute pyelonephritis; E11.36 Type 2 diabetes mellitus with diabetic cataract; H26.9 Unspecified cataract; H40.9 Unspecified glaucoma; E11.3599 Type 2 diabetes mellitus with proliferative diabetic retinopathy without macular edema, unspecified eye; I25.10 Atherosclerotic heart disease of native coronary artery without angina pectoris; I10 Essential (primary) hypertension; E66.9 Obesity, unspecified; Z68.38 Body mass index [BMI] 38.0-38.9, adult; Z88.1 Allergy status to other antibiotic agents; Z88.5 Allergy status to narcotic agent; Z88.8 Allergy status to other drugs, medicaments and biological substances; Z91.040 Latex allergy status; Z79.82 Long term (current) use of aspirin; Z79.4 Long term (current) use of insulin; Z79.899 Other long term (current) drug therapy; Z95.5 Presence of coronary angioplasty implant and graft
CPT/HCPCS: 36415; 71045; 80053; 81001; 82962; 83605; 85025; 87040; 87081; 87086; 87088; 87186; 87430; 87804; 96361; 96365; 99284; A9270; J0696; J7030; J7050; 99283

== ENCOUNTER 2021-04-24 18:38 | Emergency (ER) | payer MEDICARE, OTHER ==
[2021-04-24 19:01] VITALS: BP 180/88; PULSE 94
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
[2021-04-24 20:12] LABS: ANION GAP 13.8 mEq/L (7-13); CHLORIDE,CL 105 mmol/L (98-107); SODIUM,NA 144 mmol/L (136-145)
[2021-04-24] MEDS ORDERED: Iopamidol 612 MG/ML 100 ML Bottle IVPUSH ONE (20:32)
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
== END 2021-04-24 23:22 ==
LOC: DL.ED 18:38
DX: S36.113A Laceration of liver, unspecified degree, initial encounter (principal); E11.9 Type 2 diabetes mellitus without complications; E66.9 Obesity, unspecified; Z68.30 Body mass index [BMI] 30.0-30.9, adult; Z91.040 Latex allergy status; Z88.1 Allergy status to other antibiotic agents; Z88.8 Allergy status to other drugs, medicaments and biological substances; Z79.82 Long term (current) use of aspirin; Z79.4 Long term (current) use of insulin; W17.89XA Other fall from one level to another, initial encounter
CPT/HCPCS: 36415; 73560; 74177; 80053; 85025; 99285; Q9967; 99284

== ENCOUNTER 2021-10-08 10:00 | Inpatient (IN) | payer MEDICARE ==
[2021-10-08] MEDS: Sodium Chloride 0.9% 1,000 ML IV SCH ×2 (11:59→20:33)
[2021-10-08 12:33] LABS: ANION GAP 12.9 mEq/L (7-13); CHLORIDE,CL 100 mmol/L (98-107); SODIUM,NA 135 mmol/L (136-145)
[2021-10-08] MEDS ORDERED: Docusate Sodium 100 MG Cap PO PRN ×2 (15:08→15:45)
[2021-10-08] MEDS ORDERED: Acetaminophen 325 MG Tab PO PRN (15:08)
[2021-10-08] MEDS ORDERED: Bisacodyl 5 MG Tab PO PRN ×2 (15:08→15:45)
[2021-10-08] MEDS ORDERED: HYDROmorphone 0.5 MG/0.5 ML Syringe IVPUSH PRN (15:08)
[2021-10-08] MEDS ORDERED: Albuterol/Ipratropium 3.0-0.5 MG/3 ML Neb Soln NEB PRN ×2 (15:08→15:45)
[2021-10-08] MEDS ORDERED: Promethazine 25 MG/ML SDV IM PRN (15:08)
[2021-10-08] MEDS ORDERED: Ondansetron 4 MG/2 ML SDV IVPUSH PRN ×2 (15:08→15:45)
[2021-10-08] MEDS ORDERED: cefTRIAXone 2 GM in Sodium Chloride 0.9% 100 ML IV ONE ×2 (15:16→16:00)
[2021-10-08] MEDS ORDERED: Acetaminophen 500 MG Tab PO PRN (15:17)
[2021-10-08] MEDS ORDERED: Nitroglycerin 0.4 MG Tab.SL SL PRN (15:17)
[2021-10-08] MEDS: Acetaminophen 325 MG Tab PO PRN ×2 (16:31→20:32)
[2021-10-08] MEDS: Nystatin Topical Powder 30 GM Bottle TOP PRN (16:31)
[2021-10-08] MEDS ORDERED: Non-Formulary Medication 1 Each (Estrogens, Conjugated [Premarin Vaginal Crm] 30 GM Tube) VAG SCH (17:30)
[2021-10-08] MEDS: Sodium Chloride 0.9% 10 ML Syringe FLUSH SCH (20:30)
[2021-10-08] MEDS: Apixaban 5 MG Tab PO SCH (20:30)
[2021-10-08] MEDS ORDERED: Atenolol 50 MG Tab PO SCH (21:00)
[2021-10-08] MEDS ORDERED: Latanoprost 0.005% Ophth Soln 2.5 ML Bottle EYEBOTH SCH (21:00)
[2021-10-08] MEDS ORDERED: Zolpidem 5 MG Tab PO PRN (21:00)
[2021-10-08] MEDS ORDERED: Non-Formulary Medication 1 Each (Insuln Asp Prot/Insulin Aspart [Novolog Mix 70-30] 100 UN SQ SCH (21:00)
[2021-10-09] MEDS ORDERED: GLYBURIDE 1.25 MG PO SCH (06:00)
[2021-10-09] MEDS ORDERED: Non-Formulary Medication 1 Each (Insuln Asp Prot/Insulin Aspart [Novolog Mix 70-30] 100 UN SQ SCH (06:00)
[2021-10-09] MEDS: Pantoprazole 40 MG Tab.CR PO SCH (06:20)
[2021-10-09] MEDS: Sodium Chloride 0.9% 1,000 ML IV SCH (06:20)
[2021-10-09 07:36] LABS: ANION GAP 15.6 mEq/L (7-13)
[2021-10-09] MEDS ORDERED: Non-Formulary Medication 1 Each (Vitamin E [Vitamin E] 400 UNIT Capsule) PO SCH (09:00)
[2021-10-09] MEDS ORDERED: Aspirin 325 MG Tab PO SCH (09:00)
[2021-10-09] MEDS ORDERED: cefTRIAXone 1 GM in Sodium Chloride 0.9% 50 ML IV SCH (09:00)
[2021-10-09] MEDS: Insulin Lispro 100 Units/ML 3 ML Vial SUBCUT SCH ×3 (09:05→19:15)
[2021-10-09] MEDS: Apixaban 5 MG Tab PO SCH ×2 (09:07→20:49)
[2021-10-09] MEDS: Amiodarone 200 MG Tab PO SCH (09:07)
[2021-10-09] MEDS: Insulin Glarg,Human.Rec.Analog 100 Unit/ML SUBCUT SCH (09:07)
[2021-10-09] MEDS: amLODIPine 5 MG Tab PO SCH (09:09)
[2021-10-09] MEDS: Clopidogrel 75 MG Tab PO SCH (09:09)
[2021-10-09] MEDS: cefTRIAXone 1 GM in Sodium Chloride 0.9% 50 ML IV SCH (09:10)
[2021-10-09] MEDS: Sodium Chloride 0.9% 10 ML Syringe FLUSH SCH ×2 (09:10→21:02)
[2021-10-09] MEDS ORDERED: Meclizine 12.5 MG Tab PO ONE (10:43)
[2021-10-09] MEDS: Acetaminophen 325 MG Tab PO PRN (10:57)
[2021-10-09] MEDS: HYDROmorphone 0.5 MG/0.5 ML Syringe IVPUSH PRN ×2 (20:49→23:40)
[2021-10-10] MEDS: Pantoprazole 40 MG Tab.CR PO SCH (05:33)
[2021-10-10 07:05] LABS: ANION GAP 14.6 mEq/L (7-13)
[2021-10-10] MEDS ORDERED: Famotidine 20 MG/2 ML SDV IVPUSH ONE (10:30)
[2021-10-10] MEDS ORDERED: diphenhydrAMINE 50 MG/ML SDV IVPUSH ONE (10:30)
[2021-10-10] MEDS ORDERED: Dexamethasone 4 MG/ML SDV IVPUSH ONE (10:30)
[2021-10-10] MEDS: Insulin Lispro 100 Units/ML 3 ML Vial SUBCUT SCH ×3 (10:42→17:11)
[2021-10-10] MEDS: Amiodarone 200 MG Tab PO SCH (10:43)
[2021-10-10] MEDS: Apixaban 5 MG Tab PO SCH ×2 (10:43→20:25)
[2021-10-10] MEDS: Insulin Glarg,Human.Rec.Analog 100 Unit/ML SUBCUT SCH (10:43)
[2021-10-10] MEDS: amLODIPine 5 MG Tab PO SCH (10:44)
[2021-10-10] MEDS: Clopidogrel 75 MG Tab PO SCH (10:46)
[2021-10-10] MEDS: Sodium Chloride 0.9% 10 ML Syringe FLUSH SCH ×2 (10:46→20:26)
[2021-10-10] MEDS ORDERED: Ciprofloxacin in D5W 200 MG in Premix Bag 1 BAG IV SCH ×2 (11:00)
[2021-10-10] MEDS: Meclizine 12.5 MG Tab PO PRN (14:09)
[2021-10-10] MEDS: cefTRIAXone 1 GM in Sodium Chloride 0.9% 50 ML IV SCH (15:34)
[2021-10-10] MEDS: Ciprofloxacin in D5W 200 MG in Premix Bag 1 BAG IV SCH ×2 (20:00)
[2021-10-11] MEDS: Meclizine 12.5 MG Tab PO PRN (00:38)
[2021-10-11] MEDS: Pantoprazole 40 MG Tab.CR PO SCH (05:10)
[2021-10-11] MEDS: Nystatin Topical Powder 30 GM Bottle TOP PRN (05:12)
[2021-10-11 07:39] LABS: ANION GAP 19.1 mEq/L (7-13)
[2021-10-11] MEDS: Ciprofloxacin in D5W 200 MG in Premix Bag 1 BAG IV SCH ×4 (08:10→20:34)
[2021-10-11] MEDS: amLODIPine 5 MG Tab PO SCH (08:11)
[2021-10-11] MEDS: Clopidogrel 75 MG Tab PO SCH (08:11)
[2021-10-11] MEDS: Amiodarone 200 MG Tab PO SCH (08:12)
[2021-10-11] MEDS: Sodium Chloride 0.9% 10 ML Syringe FLUSH SCH ×2 (08:12→22:04)
[2021-10-11] MEDS: Apixaban 5 MG Tab PO SCH ×2 (08:12→20:34)
[2021-10-11] MEDS: Insulin Lispro 100 Units/ML 3 ML Vial SUBCUT SCH ×3 (08:13→18:01)
[2021-10-11] MEDS: Insulin Glarg,Human.Rec.Analog 100 Unit/ML SUBCUT SCH (08:15)
[2021-10-12] MEDS: HYDROmorphone 0.5 MG/0.5 ML Syringe IVPUSH PRN (04:48)
[2021-10-12] MEDS: Pantoprazole 40 MG Tab.CR PO SCH (05:26)
[2021-10-12 06:59] LABS: ANION GAP 17.8 mEq/L (7-13)
[2021-10-12] MEDS: Ciprofloxacin in D5W 200 MG in Premix Bag 1 BAG IV SCH ×2 (08:33)
[2021-10-12] MEDS: Sodium Chloride 0.9% 10 ML Syringe FLUSH SCH ×2 (08:39→21:55)
[2021-10-12] MEDS: Insulin Lispro 100 Units/ML 3 ML Vial SUBCUT SCH ×3 (10:08→17:23)
[2021-10-12] MEDS: Clopidogrel 75 MG Tab PO SCH (10:11)
[2021-10-12] MEDS: Amiodarone 200 MG Tab PO SCH (10:11)
[2021-10-12] MEDS: amLODIPine 5 MG Tab PO SCH (10:11)
[2021-10-12] MEDS: Insulin Glarg,Human.Rec.Analog 100 Unit/ML SUBCUT SCH (10:12)
[2021-10-12] MEDS: Spironolactone 25 MG Tab PO SCH (10:14)
[2021-10-12] MEDS: Losartan 50 MG Tab PO SCH (10:14)
[2021-10-12] MEDS: Apixaban 5 MG Tab PO SCH ×2 (10:14→21:55)
[2021-10-12] MEDS: Hydrochlorothiazide 25 MG Tab PO SCH (10:15)
[2021-10-12] MEDS ORDERED: Dexamethasone 4 MG/ML SDV IVPUSH SCH (11:30)
[2021-10-12] MEDS: Dexamethasone 4 MG Tab PO SCH (12:50)
[2021-10-12] MEDS ORDERED: Ciprofloxacin in D5W 200 MG in Premix Bag 1 BAG IV SCH ×2 (21:00)
[2021-10-13] MEDS: Pantoprazole 40 MG Tab.CR PO SCH (06:10)
[2021-10-13] MEDS: Spironolactone 25 MG Tab PO SCH (09:13)
[2021-10-13] MEDS: Insulin Lispro 100 Units/ML 3 ML Vial SUBCUT SCH ×3 (09:13→17:37)
[2021-10-13] MEDS: Hydrochlorothiazide 25 MG Tab PO SCH (09:13)
[2021-10-13] MEDS: Losartan 50 MG Tab PO SCH (09:14)
[2021-10-13] MEDS: Amiodarone 200 MG Tab PO SCH (09:15)
[2021-10-13] MEDS: amLODIPine 5 MG Tab PO SCH (09:15)
[2021-10-13] MEDS: Apixaban 5 MG Tab PO SCH ×2 (09:16→21:31)
[2021-10-13] MEDS: Clopidogrel 75 MG Tab PO SCH (09:16)
[2021-10-13] MEDS: Dexamethasone 4 MG Tab PO SCH (09:16)
[2021-10-13] MEDS: Insulin Glarg,Human.Rec.Analog 100 Unit/ML SUBCUT SCH (09:22)
[2021-10-13] MEDS: Sodium Chloride 0.9% 10 ML Syringe FLUSH SCH ×2 (09:23→21:31)
[2021-10-13] MEDS: Nystatin Topical Powder 30 GM Bottle TOP PRN (16:16)
[2021-10-13] MEDS ORDERED: Omeprazole 20 MG Cap.CR PO SCH (21:00)
[2021-10-14] MEDS: Pantoprazole 40 MG Tab.CR PO SCH (06:02)
[2021-10-14] MEDS: Insulin Lispro 100 Units/ML 3 ML Vial SUBCUT SCH ×3 (09:09→18:01)
[2021-10-14] MEDS ORDERED: Levofloxacin/Dextrose 5%-Water 500 MG in Premix Bag 1 BAG IV SCH (09:30)
[2021-10-14] MEDS: Hydrochlorothiazide 25 MG Tab PO SCH (09:32)
[2021-10-14] MEDS: Amiodarone 200 MG Tab PO SCH (09:33)
[2021-10-14] MEDS: Dexamethasone 4 MG Tab PO SCH (09:33)
[2021-10-14] MEDS: Spironolactone 25 MG Tab PO SCH (09:33)
[2021-10-14] MEDS: Apixaban 5 MG Tab PO SCH ×2 (09:33→21:04)
[2021-10-14] MEDS: amLODIPine 5 MG Tab PO SCH (09:33)
[2021-10-14] MEDS: Losartan 50 MG Tab PO SCH (09:34)
[2021-10-14] MEDS: Clopidogrel 75 MG Tab PO SCH (09:35)
[2021-10-14] MEDS: Sodium Chloride 0.9% 10 ML Syringe FLUSH SCH ×2 (09:39→21:40)
[2021-10-14] MEDS: Insulin Glarg,Human.Rec.Analog 100 Unit/ML SUBCUT SCH (09:43)
[2021-10-14] MEDS: Piperacillin/Tazobactam 2.25 GM in Sodium Chloride 0.9% 50 ML IV SCH ×2 (11:01→18:02)
[2021-10-14] MEDS: Meclizine 12.5 MG Tab PO SCH ×2 (15:11→21:04)
[2021-10-15] MEDS: Piperacillin/Tazobactam 2.25 GM in Sodium Chloride 0.9% 50 ML IV SCH ×3 (01:45→17:36)
[2021-10-15] MEDS: Acetaminophen 325 MG Tab PO PRN (05:02)
[2021-10-15] MEDS: Pantoprazole 40 MG Tab.CR PO SCH (05:03)
[2021-10-15 07:23] LABS: ANION GAP 15.2 mEq/L (7-13); CHLORIDE,CL 101 mmol/L (98-107); SODIUM,NA 136 mmol/L (136-145)
[2021-10-15] MEDS ORDERED: Magnesium Hydroxide 400 MG/5 ML Susp 30 ML Cup PO PRN (09:08)
[2021-10-15] MEDS ORDERED: Polyethylene Glycol 3350 Powder 17 GM Packet PO PRN (09:08)
[2021-10-15] MEDS: Clopidogrel 75 MG Tab PO SCH (09:29)
[2021-10-15] MEDS: Meclizine 12.5 MG Tab PO SCH ×2 (09:29→20:03)
[2021-10-15] MEDS ORDERED: Iopamidol 755 Mg/ML 100 ML Bottle IVPUSH ONE (09:30)
[2021-10-15] MEDS: Apixaban 5 MG Tab PO SCH ×2 (09:30→20:03)
[2021-10-15] MEDS: Sodium Chloride 0.9% 10 ML Syringe FLUSH SCH ×2 (09:30→20:03)
[2021-10-15] MEDS: Dexamethasone 4 MG Tab PO SCH (09:30)
[2021-10-15] MEDS: Amiodarone 200 MG Tab PO SCH (09:33)
[2021-10-15] MEDS: amLODIPine 5 MG Tab PO SCH (09:33)
[2021-10-15] MEDS: Docusate Sodium 100 MG Cap PO SCH ×2 (09:44→20:03)
[2021-10-15] MEDS: Insulin Glarg,Human.Rec.Analog 100 Unit/ML SUBCUT SCH (10:29)
[2021-10-15] MEDS: Sodium Chloride 0.9% 1,000 ML IV SCH (10:34)
[2021-10-15] MEDS: Insulin Lispro 100 Units/ML 3 ML Vial SUBCUT SCH ×3 (10:37→17:35)
[2021-10-15] MEDS ORDERED: Water For Injection, Sterile 40 ML ONE (21:14)
[2021-10-15] MEDS ORDERED: REMDESIVIR 200 MG in Sodium Chloride 0.9% 250 ML IV ONE (21:15)
[2021-10-16] MEDS: Piperacillin/Tazobactam 2.25 GM in Sodium Chloride 0.9% 50 ML IV SCH ×3 (01:24→18:19)
[2021-10-16] MEDS: Sodium Chloride 0.9% 1,000 ML IV SCH (02:45)
[2021-10-16] MEDS: Pantoprazole 40 MG Tab.CR PO SCH (05:28)
[2021-10-16] MEDS: Dexamethasone 4 MG Tab PO SCH (08:56)
[2021-10-16] MEDS: Spironolactone 25 MG Tab PO SCH (08:56)
[2021-10-16] MEDS: Insulin Lispro 100 Units/ML 3 ML Vial SUBCUT SCH ×3 (08:56→17:40)
[2021-10-16] MEDS: Apixaban 5 MG Tab PO SCH ×2 (08:58→21:13)
[2021-10-16] MEDS: Docusate Sodium 100 MG Cap PO SCH ×2 (08:58→21:13)
[2021-10-16] MEDS: Hydrochlorothiazide 25 MG Tab PO SCH (08:58)
[2021-10-16] MEDS: Amiodarone 200 MG Tab PO SCH (08:59)
[2021-10-16] MEDS: Meclizine 12.5 MG Tab PO SCH ×2 (08:59→21:13)
[2021-10-16] MEDS: amLODIPine 5 MG Tab PO SCH (09:00)
[2021-10-16] MEDS: Clopidogrel 75 MG Tab PO SCH (09:00)
[2021-10-16] MEDS: REMDESIVIR 100 MG in Sodium Chloride 0.9% 100 ML IV SCH (09:52)
[2021-10-16] MEDS: Sodium Chloride 0.9% 10 ML Syringe FLUSH SCH ×2 (09:52→21:14)
[2021-10-16] MEDS: Insulin Glarg,Human.Rec.Analog 100 Unit/ML SUBCUT SCH (10:00)
[2021-10-16] MEDS ORDERED: Tocilizumab 80 MG in Sodium Chloride 0.9% 100 ML IV ONE (18:24)
[2021-10-16] MEDS ORDERED: SODIUM CHLORIDE 0.9% IV ONE ×2 (19:00→23:45)
[2021-10-16] MEDS ORDERED: TOCILIZUMAB IV ONE ×2 (19:00→23:45)
[2021-10-16] MEDS: Acetaminophen 325 MG Tab PO PRN (21:12)
[2021-10-17] MEDS: Piperacillin/Tazobactam 2.25 GM in Sodium Chloride 0.9% 50 ML IV SCH ×3 (02:27→17:51)
[2021-10-17] MEDS: Acetaminophen 325 MG Tab PO PRN (02:39)
[2021-10-17 07:07] LABS: ANION GAP 14.3 mEq/L (7-13)
[2021-10-17] MEDS: Insulin Lispro 100 Units/ML 3 ML Vial SUBCUT SCH ×3 (09:31→17:43)
[2021-10-17] MEDS: Pantoprazole 40 MG Tab.CR PO SCH (09:43)
[2021-10-17] MEDS: Clopidogrel 75 MG Tab PO SCH (09:43)
[2021-10-17] MEDS: amLODIPine 5 MG Tab PO SCH (09:44)
[2021-10-17] MEDS: Docusate Sodium 100 MG Cap PO SCH ×3 (09:44→20:17)
[2021-10-17] MEDS: Meclizine 12.5 MG Tab PO SCH ×2 (09:44→20:17)
[2021-10-17] MEDS: Losartan 50 MG Tab PO SCH (09:44)
[2021-10-17] MEDS: Apixaban 5 MG Tab PO SCH ×2 (09:44→20:17)
[2021-10-17] MEDS: Dexamethasone 4 MG Tab PO SCH (09:45)
[2021-10-17] MEDS: Spironolactone 25 MG Tab PO SCH (09:45)
[2021-10-17] MEDS: Amiodarone 200 MG Tab PO SCH (09:45)
[2021-10-17] MEDS: Hydrochlorothiazide 25 MG Tab PO SCH (09:45)
[2021-10-17] MEDS: Insulin Glarg,Human.Rec.Analog 100 Unit/ML SUBCUT SCH (09:52)
[2021-10-17] MEDS: Sodium Chloride 0.9% 10 ML Syringe FLUSH SCH ×2 (09:58→20:17)
[2021-10-17] MEDS ORDERED: TOCILIZUMAB IV ONE (10:00)
[2021-10-17] MEDS ORDERED: SODIUM CHLORIDE 0.9% IV ONE (10:00)
[2021-10-17] MEDS: REMDESIVIR 100 MG in Sodium Chloride 0.9% 100 ML IV SCH (10:57)
[2021-10-18] MEDS: Acetaminophen 325 MG Tab PO PRN ×2 (00:52→18:33)
[2021-10-18] MEDS: Piperacillin/Tazobactam 2.25 GM in Sodium Chloride 0.9% 50 ML IV SCH ×3 (01:00→17:23)
[2021-10-18] MEDS: Pantoprazole 40 MG Tab.CR PO SCH (05:20)
[2021-10-18 07:03] LABS: ANION GAP 13.6 mEq/L (7-13)
[2021-10-18] MEDS: REMDESIVIR 100 MG in Sodium Chloride 0.9% 100 ML IV SCH (08:21)
[2021-10-18] MEDS: Docusate Sodium 100 MG Cap PO SCH ×3 (08:22→21:06)
[2021-10-18] MEDS: Apixaban 5 MG Tab PO SCH ×2 (08:22→21:05)
[2021-10-18] MEDS: Clopidogrel 75 MG Tab PO SCH (08:22)
[2021-10-18] MEDS: Meclizine 12.5 MG Tab PO SCH ×2 (08:23→21:05)
[2021-10-18] MEDS: Hydrochlorothiazide 25 MG Tab PO SCH (08:23)
[2021-10-18] MEDS: Dexamethasone 4 MG Tab PO SCH (08:23)
[2021-10-18] MEDS: amLODIPine 5 MG Tab PO SCH (08:23)
[2021-10-18] MEDS: Losartan 50 MG Tab PO SCH (08:24)
[2021-10-18] MEDS: Amiodarone 200 MG Tab PO SCH (08:24)
[2021-10-18] MEDS: Spironolactone 25 MG Tab PO SCH (08:24)
[2021-10-18] MEDS: Sodium Chloride 0.9% 10 ML Syringe FLUSH SCH ×2 (08:25→21:05)
[2021-10-18] MEDS: Insulin Lispro 100 Units/ML 3 ML Vial SUBCUT SCH ×3 (08:50→17:11)
[2021-10-18] MEDS ORDERED: Insulin Glarg,Human.Rec.Analog 100 Unit/ML SUBCUT SCH (09:00)
[2021-10-18] MEDS ORDERED: SODIUM CHLORIDE 0.9% IV ONE (15:17)
[2021-10-18] MEDS ORDERED: TOCILIZUMAB IV ONE (15:17)
[2021-10-18] MEDS: Nystatin Topical Powder 30 GM Bottle TOP PRN (18:34)
[2021-10-19] MEDS: Piperacillin/Tazobactam 2.25 GM in Sodium Chloride 0.9% 50 ML IV SCH ×3 (01:05→17:24)
[2021-10-19] MEDS: Pantoprazole 40 MG Tab.CR PO SCH (06:19)
[2021-10-19 07:18] LABS: ANION GAP 13.8 mEq/L (7-13)
[2021-10-19] MEDS ORDERED: Glucagon,Human Recombinant 1 MG Vial IM PRN (08:01)
[2021-10-19] MEDS ORDERED: 50% Dextrose in Water 50 ML Syringe IVPUSH PRN (08:01)
[2021-10-19] MEDS ORDERED: Insulin Glarg,Human.Rec.Analog 100 Unit/ML SUBCUT SCH (09:00)
[2021-10-19] MEDS: Insulin Lispro 100 Units/ML 3 ML Vial SUBCUT SCH ×3 (09:06→18:20)
[2021-10-19] MEDS: Spironolactone 25 MG Tab PO SCH (09:08)
[2021-10-19] MEDS: Hydrochlorothiazide 25 MG Tab PO SCH (09:08)
[2021-10-19] MEDS: Apixaban 5 MG Tab PO SCH ×2 (09:09→20:36)
[2021-10-19] MEDS: Losartan 50 MG Tab PO SCH (09:09)
[2021-10-19] MEDS: Acetaminophen 325 MG Tab PO PRN (09:09)
[2021-10-19] MEDS: Clopidogrel 75 MG Tab PO SCH (09:09)
[2021-10-19] MEDS: Amiodarone 200 MG Tab PO SCH (09:11)
[2021-10-19] MEDS: Dexamethasone 4 MG Tab PO SCH (09:11)
[2021-10-19] MEDS: amLODIPine 5 MG Tab PO SCH (09:12)
[2021-10-19] MEDS: Meclizine 12.5 MG Tab PO SCH ×2 (09:12→20:36)
[2021-10-19] MEDS: REMDESIVIR 100 MG in Sodium Chloride 0.9% 100 ML IV SCH (09:17)
[2021-10-19] MEDS: Sodium Chloride 0.9% 10 ML Syringe FLUSH SCH (09:20)
[2021-10-19] MEDS: Docusate Sodium 100 MG Cap PO SCH ×2 (09:20→20:36)
[2021-10-19 21:14] VITALS: BP 111/98; PULSE 76
== END 2021-10-19 21:10 | DRG 177 ==
LOC: DL.ED 10:00 → DL.MS 14:08 → DL.ED 15:23
PROVIDERS: ADMIT Internal Medicine; ATTEND Internal Medicine
PROC: XW033E5 Introduction of Remdesivir Anti-infective into Peripheral Vein, Percutaneous Approach, New Technology Group 5 (ICD-10-PCS; principal; 2021-10-08)
PROC: 3E0DX3Z Introduction of Anti-inflammatory into Mouth and Pharynx, External Approach (ICD-10-PCS; 2021-10-08)
PROC: XW033H5 Introduction of Tocilizumab into Peripheral Vein, Percutaneous Approach, New Technology Group 5 (ICD-10-PCS; 2021-10-08)
DX: U07.1 COVID-19 (principal); J12.82 Pneumonia due to coronavirus disease 2019; J96.01 Acute respiratory failure with hypoxia; N17.9 Acute kidney failure, unspecified; N39.0 Urinary tract infection, site not specified; G93.49 Other encephalopathy; R53.1 Weakness; H54.7 Unspecified visual loss; H40.9 Unspecified glaucoma; I25.10 Atherosclerotic heart disease of native coronary artery without angina pectoris; E78.00 Pure hypercholesterolemia, unspecified; K21.9 Gastro-esophageal reflux disease without esophagitis; K44.9 Diaphragmatic hernia without obstruction or gangrene; M06.9 Rheumatoid arthritis, unspecified; E11.22 Type 2 diabetes mellitus with diabetic chronic kidney disease; I12.9 Hypertensive chronic kidney disease with stage 1 through stage 4 chronic kidney disease, or unspecified chronic kidney disease; N18.9 Chronic kidney disease, unspecified; R33.9 Retention of urine, unspecified; E78.5 Hyperlipidemia, unspecified; M19.90 Unspecified osteoarthritis, unspecified site; I87.2 Venous insufficiency (chronic) (peripheral); M17.11 Unilateral primary osteoarthritis, right knee; E66.9 Obesity, unspecified; Z99.3 Dependence on wheelchair; Z95.5 Presence of coronary angioplasty implant and graft; Z88.2 Allergy status to sulfonamides; Z88.8 Allergy status to other drugs, medicaments and biological substances; Z88.1 Allergy status to other antibiotic agents; Z91.040 Latex allergy status; Z79.82 Long term (current) use of aspirin; Z79.4 Long term (current) use of insulin; Z79.899 Other long term (current) drug therapy; Z87.11 Personal history of peptic ulcer disease; Z79.01 Long term (current) use of anticoagulants; Z79.02 Long term (current) use of antithrombotics/antiplatelets
CPT/HCPCS: 36415; 80053; 81001; 83605; 83880; 85025; 85379; 87040; 87086; 87088; 87186; 99285 ×2; J7030; 51702; 71045; 71260; 76770; 80048; 80076; 82248; 82550; 82652; 82728; 82947; 84439; 84443; 85027; 85651; 86140; 97161-GP; 97166-GO; 97530-GO; 97530-GP; 99223; 99232; 99233; 99239; A9270-GY; J0248; J0696; J0744; J1100; J1170; J1200; J1815-GY; J2543; J3490; J7050; J8540; Q0249; Q9967